=== PATIENT | male | born 1965 | race Caucasian/White ===

== ENCOUNTER 2017-09-04 19:42 | Inpatient (IN) | payer SELFPAY ==
[~2017-09-04] VITALS: Ht 174 cm; Wt 113.6 kg
[~2017-09-04 19:42] MED LIST: DEPA500T3 PO; HYDR50TA94 PO; LEXA20TA PO; QUET1TAB66 PO
[2017-09-04 19:50] VITALS: BP 160/98; PULSE 132; RESP 26; TEMP 102.4; O2SAT 91
[2017-09-04] MEDS ORDERED: SODIUM CHLOR 0.9% 1000 ML INJ 1,000 ML IV ONE ×3 (19:53)
[2017-09-04] MEDS ORDERED: SODIUM CHLOR 0.9% 1000 ML INJ 600 ML IV ONE (19:53)
[2017-09-04 19:58] VITALS: O2SAT 94
[2017-09-04] MEDS ORDERED: ONDANSETRON HCL 4 MG/2 ML VIAL IV PUSH ONE (20:00)
[2017-09-04] MEDS ORDERED: ACETAMINOPHEN 650 MG SUPP RECTAL ONE (20:00)
[2017-09-04] MEDS ORDERED: HYDROmorphone HCL PF 1 MG/ML VIAL IV PUSH ONE (20:00)
[2017-09-04] MEDS ORDERED: methylPREDNISolone SOD SUCC 125 MG/2 ML VIAL IV PUSH ONE (20:15)
--- NOTE | 2017-09-04 20:23 | PD ---
HPI Chief Complaint: Abdominal Pain Time Seen by Provider: 19:59 Travel History International Travel<30 days: No Contact w/Intl Traveler<30days: No Traveled to known affect area: No History of Present Illness HPI 51 YO M presents to the ED via EMS for evaluation of 6 month history of intermittent, 10/10, left upper quadrant abdominal pain. Worsened over the last 15 hours. No exacerbating symptoms reported. Relieved by sitting up and applying pressure to the area of pain. Patient endorses accompanying fever and chills. He denies diminished appetite, nausea, vomiting, changes in bowel habits, melena, hematochezia. He is a current smoker with a chronic, nonproductive cough. No worse today. He denies palpitations, diaphoresis, shortness of breath. He endorses chronic alcohol use, drank 7 beers last night before onset of the pain. He also complains that he has had several episodes of urinary incontinence which he associates with worsening of the pain. He denies dysuria or hematuria. He does not have a primary care provider. He states that he hasn't seen a doctor in "eons." [facility] Past Medical History Medical History: Denies Significant Hx Asthma: Yes Autoimmune Disease: No Blood Disorders: No Bipolar Disorder: Yes Anxiety: Yes (not currently ) Depression: Yes (not currently ) Cancer: No Cardiovascular Problems: Yes Chemotherapy: No Chest Pain: Yes COPD: Yes (denies - states never told and never sent to specialist for it) Diabetes: No Diminished Hearing: No Endocrine: No Genitourinary: No Immune Disorder: No Musculoskeletal: Yes (chronic back pain does not take meds for) Neurologic: No Psychiatric: Yes Reproductive: No Respiratory: Yes Myocardial Infarction: No Radiation Therapy: No Renal Failure: No Sleep Apnea: Yes Thyroid Disease: No Past Surgical History Surgical History: No Previous Surgery AICD: No Oral Surgery: Yes (tonsillectomy) Pacemaker: No Other Surgery: Yes Family History Family Hypercholesterolemia: Yes Social History Alcohol Use: Yes (2-3X WEEKLY) Tobacco Use: Yes (1 PPD) Substance Use: No Allergies-Medications (Allergen,Severity, Reaction): Coded Allergies: Sulfa (Sulfonamide Antibiotics) (Unverified Allergy, Severe, SOB, 09/04/17 ) ciprofloxacin (Verified Allergy, Unknown, 09/04/17) Reported Meds & Prescriptions Reported Meds & Active Scripts Active Review of Systems Except as stated in HPI: all other systems reviewed are Neg Physical Exam Narrative GENERAL: [place] nourished, well-developed hypoxic, tachypneic white male in mild distress. SKIN: Focused skin assessment warm/dry. HEAD: Normocephalic. EYES: No scleral icterus. No injection or drainage. NECK: Supple, trachea midline. No JVD or lymphadenopathy. CARDIOVASCULAR: Regular rate and rhythm without murmurs, gallops, or rubs. RESPIRATORY: Breath sounds coarse bilaterally. Positive accessory muscle use. Patient speaking in short sentences. Tender to palpation in the left lower rib cage. GASTROINTESTINAL: Abdomen soft, protuberant, nondistended. Tender to palpation in the left lateral upper quadrant. MUSCULOSKELETAL: No cyanosis, or edema. Moves easily from sitting to standing position. BACK: Nontender without obvious deformity. No CVA tenderness. Data Data Last Documented VS Vital Signs Date Time Temp Pulse Resp B/P (MAP) Pulse Ox O2 Delivery O2 Flow Rate FiO2 09/04/17 21:42 99.6 129 22 165/87 (113) 92 Nasal Cannula 2.00 Orders Orders Electrocardiogram (09/04/17 19:53) Complete Blood Count With Diff (09/04/17 19:53) Comprehensive Metabolic Panel (09/04/17 19:53) Prothrombin Time / Inr (Pt) (09/04/17 19:53) Act Partial Throm Time (Ptt) (09/04/17 19:53) Lactic Acid Sepsis Protocol (09/04/17 19:53) Magnesium (Mg) (09/04/17 19:53) Lipase (09/04/17 19:53) Ckmb (Isoenzyme) Profile (09/04/17 19:53) Troponin I (09/04/17 19:53) Urinalysis - C+S If Indicated (09/04/17 19:53) Blood Culture (09/04/17 19:53) Chest, Single Ap (09/04/17 19:53) Blood Glucose (09/04/17 19:53) Ecg Monitoring (09/04/17 19:53) Iv Access Insert/Monitor (09/04/17 19:53) Oximetry (09/04/17 19:53) Acetaminophen Supp (Tylenol Supp) (09/04/17 20:00) Hydromorphone Pf Inj (Dilaudid Pf Inj) (09/04/17 20:00) Ondansetron Inj (Zofran Inj) (09/04/17 20:00) Ct Abd/Pel W Iv Contrast(Rout) (09/04/17 19:53) Sodium Chlor 0.9% 1000 Ml Inj (Ns 1000 M (09/04/17 19:53) Sodium Chlor 0.9% 1000 Ml Inj (Ns 1000 M (09/04/17 19:53) Sodium Chlor 0.9% 1000 Ml Inj (Ns 1000 M (09/04/17 19:53) Sodium Chlor 0.9% 1000 Ml Inj (Ns 1000 M (09/04/17 19:53) Methylprednisolone So Succ Inj (Solumedr (09/04/17 20:15) Albuterol-Ipratropium Neb (Duoneb Neb) (09/04/17 20:15) Ceftriaxone Inj (Rocephin Inj) (09/04/17 20:34) Azithromycin Inj (Zithromax Inj) (09/04/17 20:34) Iohexol 350 Inj (Omnipaque 350 Inj) (09/04/17 21:24) Magnesium Sulfate 1 Gm Premix (Magnesium (09/04/17 22:00) Albuterol Neb (Albuterol Neb) (09/04/17 22:00) Arterial Blood Gas (Abg) (09/04/17 ) Labs Laboratory Tests Test 09/04/17 20:00 White Blood Count 13.8 TH/MM3 Red Blood Count 5.18 MIL/MM3 Hemoglobin 16.2 GM/DL Hematocrit 47.2 % Mean Corpuscular Volume 91.1 FL Mean Corpuscular Hemoglobin 31.3 PG Mean Corpuscular Hemoglobin Concent 34.4 % Red Cell Distribution Width 12.3 % Platelet Count 242 TH/MM3 Mean Platelet Volume 6.9 FL Neutrophils (%) (Auto) 82.6 % Lymphocytes (%) (Auto) 9.5 % Monocytes (%) (Auto) 7.5 % Eosinophils (%) (Auto) 0.1 % Basophils (%) (Auto) 0.3 % Neutrophils # (Auto) 11.4 TH/MM3 Lymphocytes # (Auto) 1.3 TH/MM3 Monocytes # (Auto) 1.0 TH/MM3 Eosinophils # (Auto) 0.0 TH/MM3 Basophils # (Auto) 0.0 TH/MM3 CBC Comment DIFF FINAL Differential Comment Prothrombin Time 10.3 SEC Prothromb Time International Ratio 0.9 RATIO Activated Partial Thromboplast Time 29.3 SEC Blood Urea Nitrogen 12 MG/DL Creatinine 0.74 MG/DL Random Glucose 106 MG/DL Total Protein 7.9 GM/DL Albumin 3.3 GM/DL Calcium Level 8.7 MG/DL Magnesium Level 1.9 MG/DL Alkaline Phosphatase 106 U/L Aspartate Amino Transf (AST/SGOT) 47 U/L Alanine Aminotransferase (ALT/SGPT) 74 U/L Total Bilirubin 1.0 MG/DL Sodium Level 136 MEQ/L Potassium Level 4.0 MEQ/L Chloride Level 103 MEQ/L Carbon Dioxide Level 26.1 MEQ/L Anion Gap 7 MEQ/L Estimat Glomerular Filtration Rate 111 ML/MIN Lactic Acid Level 1.0 mmol/L Total Creatine Kinase 87 U/L Troponin I LESS THAN 0.02 NG/ML Lipase 122 U/L MDM Medical Decision Making Medical Screen Exam Complete: Yes Emergency Medical Condition: Yes Differential Diagnosis Pneumonia versus pancreatitis versus UTI versus ACS versus PE versus other Narrative Course 51 YO M presents to the ED via EMS for evaluation of 6 month history of intermittent, 10/10, left upper quadrant abdominal pain. Worsened over the last 15 hours. He denies diminished appetite, nausea, vomiting, changes in bowel habits, melena, hematochezia. He is a current smoker with a chronic, nonproductive cough. No worse today. He denies palpitations, diaphoresis, shortness of breath. He endorses chronic alcohol use. He has had several episodes of urinary incontinence which he associates with worsening of the pain. He denies dysuria or hematuria. No PCP. On arrival temp 102.4. Pulse 132, respiratory rate 26, BP 160/98, O2 91% on room air. On exam the patient has coarse and eye laterally. He is tender to palpation in the left lateral upper quadrant and left lower rib cage. Exam is otherwise unremarkable. 3L O2 nasal cannula applied. Patient was administered 4 L normal saline, 1 mg Dilaudid, 4 mg Zofran IV and 650 mg Tylenol by mouth. EKG rate 127, sinus tachycardia. Normal intervals. Normal axis. No ST changes. Reviewed by Dr. Jaquez. CXR: Left lower lobe pneumonia and small pleural effusion. CBC: WBC 13.8. INR 0.9. CMP: AST 47 Cardiac enzymes negative 1. UA pending. CT of abdomen and pelvis: Nonobstructing 7 mm stone extrarenal pelvis. No hydronephrosis. Small left pleural effusion. On recheck the patient is very diaphoretic. Temp 99.6. Pulse 129. Respiratory rate 26 and O2 sats 92-94% on 3 L nasal cannula. Breath sounds continued to be tight sounding. Dr. Jaquez evaluated the patient and recommended 2 mg magnesium IV and 2 additional DuoNeb's. CTA was considered, however the patient already had IV dye for the abdominal CT. We'll give a dose of Lovenox tonight and have the CTA in 12 hours. I discussed the results of workup with the patient and the need for admission. He is agreeable. I spoke with Dr. Monroe who agrees to accept the patient to the medicine service. Please see medicine notes for disposition. Sepsis Criteria SIRS Criteria (2 or more): Temp > 100.9 or < 96.8, Heart rate over 90, WBC > 55639, < 4000 or > 10% bands Sepsis Criteria (SIRS+source): Infect source susp/known Criteria Outcome: Meets sepsis criteria Samantha Bojorquez Sep 04, 2017 20:23
--- NOTE | 2017-09-04 20:28 | RADRPT ---
EXAM DATE/TIME: 09/04/2017 19:56 [facility] COMPARISON: CHEST SINGLE AP, January 03, 2016, 8:12. INDICATIONS : Fever, Shortness of breath since today. MEDICAL HISTORY : None. SURGICAL HISTORY : None. ENCOUNTER: Initial ACUITY: 1 day PAIN SCORE: 10/10 LOCATION: Left lower chest FINDINGS: There is a dense opacity at the left base which obscures the left hemidiaphragm and portions of the l eft heart border. Possible meniscal interface laterally. The right lung is clear but the heart is n ormal in size. Osseous structures are grossly intact. CONCLUSION: Left lower lobe infiltrate and pleural effusion. Fred Clinton MD on September 04, 2017 at 20:26 Board Certified Radiologist. This report was verified electronically.
[2017-09-04 20:32] LABS: AUTOMATED NEUTROPHIL # 11.4 TH/MM3 (1.8-7.7); BASOPHIL % 0.3 % (0.0-2.0); EOSINOPHIL % 0.1 % (0.0-4.0); HEMATOCRIT 47.2 % (39.0-51.0); HEMOGLOBIN 16.2 GM/DL (13.0-17.0); LYMPH % 9.5 % (9.0-44.0); LYMPHOCYTE # 1.3 TH/MM3 (1.0-4.8); MEAN CELL VOLUME 91.1 FL (80.0-100.0); MEAN CORPUSCULAR HEMOGLOBIN 31.3 PG (27.0-34.0); MEAN CORPUSCULAR HGB CONC 34.4 % (32.0-36.0); MEAN PLATELET VOLUME 6.9 FL (7.0-11.0); MONO % 7.5 % (0.0-8.0); NEUT % 82.6 % (16.0-70.0); PLATELET COUNT 242 TH/MM3 (150-450); RED BLOOD COUNT 5.18 MIL/MM3 (4.50-5.90); RED CELL DISTRIBUTION WIDTH 12.3 % (11.6-17.2); WHITE BLOOD COUNT 13.8 TH/MM3 (4.0-11.0)
[2017-09-04] MEDS ORDERED: AZITHROMYCIN INJ 500 MG in SODIUM CHLOR 0.9% 250 ML INJ 250 ML IV STA (20:34)
[2017-09-04] MEDS ORDERED: cefTRIAXone INJ 2,000 MG in SODIUM CHLORIDE 0.9% INJ 100 ML IV STA (20:34)
[2017-09-04] MEDS: RESP: ALBUTEROL 2.5 MG/IPRATROPIUM 0.5 MG NEB (SCH) INH (20:37)
[2017-09-04 20:42] LABS: INTERNATIONAL NORMALIZED RATIO 0.9 RATIO; PROTHROMBIN TIME - PATIENT 10.3 SEC (9.8-11.6)
[2017-09-04 20:53] LABS: ALBUMIN 3.3 GM/DL (3.4-5.0); AST (GOT) 47 U/L (15-37); BICARBONATE 26.1 MEQ/L (21.0-32.0); BLOOD UREA NITROGEN 12 MG/DL (7-18); CALCIUM 8.7 MG/DL (8.5-10.1); CHLORIDE 103 MEQ/L (98-107); CREATININE 0.74 MG/DL (0.60-1.30); GLOMERULAR FILTRATION RATE 111 ML/MIN (>89); GLUCOSE,RANDOM 106 MG/DL (74-106); LIPASE 122 U/L (73-393); MAGNESIUM 1.9 MG/DL (1.5-2.5); SODIUM (NA) 136 MEQ/L (136-145)
[2017-09-04 20:58] LABS: ALKALINE PHOSPHATASE 106 U/L (45-117); ALT (GPT) 74 U/L (12-78); TOTAL PROTEIN 7.9 GM/DL (6.4-8.2); TROPONIN I LESS THAN 0.02 NG/ML (0.02-0.05)
[2017-09-04 21:15] VITALS: O2SAT 94
[2017-09-04] MEDS ORDERED: IOHEXOL 350 MG/ML 10 ML VIAL (for RAD DIAG) IVCONTRAST ONE (21:24)
--- NOTE | 2017-09-04 21:35 | RADRPT ---
EXAM DATE/TIME: 09/04/2017 21:22 [facility] COMPARISON: No previous studies available for comparison. INDICATIONS : Left upper quadrant pain. IV CONTRAST: 95 cc Omnipaque 350 (iohexol) IV ORAL CONTRAST: No oral contrast ingested. RADIATION DOSE: 19.49 CTDIvol (mGy) MEDICAL HISTORY : Cardiovascular disease. SURGICAL HISTORY : None. ENCOUNTER: Initial ACUITY: 1 day PAIN SCALE: 9/10 LOCATION: Left upper quadrant TECHNIQUE: Volumetric scanning of the abdomen and pelvis was performed. Using automated exposure control and ad justment of the mA and/or kV according to patient size, radiation dose was kept as low as reasonably achievable to obtain optimal diagnostic quality images. DICOM format image data is available electro nically for review and comparison. FINDINGS: LOWER LUNGS: Left pleural effusion measures 2.8 cm in thickness. There is some compressive atelectasis of the adj acent left lower lung. LIVER: Homogeneous density without lesion. There is no dilation of the biliary tree. No calcified gallston es. SPLEEN: Normal size without lesion. PANCREAS: Within normal limits. KIDNEYS: No evidence of hydronephrosis on either side. There is a solitary 7 mm calcified stone in the extrar enal pelvis on the left side. Both ureters are normal in dimension without evidence of calcified sto ne. ADRENAL GLANDS: Within normal limits. VASCULAR: There is no aortic aneurysm. BOWEL/MESENTERY: No dilated loops of small or large bowel. ABDOMINAL WALL: Within normal limits. RETROPERITONEUM: There is no lymphadenopathy. BLADDER: No wall thickening or mass. REPRODUCTIVE: Within normal limits. INGUINAL: There is no lymphadenopathy or hernia. MUSCULOSKELETAL: Within normal limits for patient age. CONCLUSION: 1. Nonobstructing 7 mm stone in the extra renal pelvis on the left side. No evidence of hydronephros is. 2. Small left pleural effusion. Fred Clinton MD on September 04, 2017 at 21:31 Board Certified Radiologist. This report was verified electronically.
[2017-09-04 21:42] VITALS: BP 165/87; PULSE 129; RESP 22; TEMP 99.6; O2SAT 92
--- NOTE | 2017-09-04 21:58 | PD ---
Physical Exam Date Seen by Provider: Sep 04, 2017 Data Data Last Documented VS Vital Signs Date Time Temp Pulse Resp B/P (MAP) Pulse Ox O2 Delivery O2 Flow Rate FiO2 09/04/17 21:42 99.6 129 22 165/87 (113) 92 Nasal Cannula 2.00 Orders Orders Electrocardiogram (09/04/17 19:53) Complete Blood Count With Diff (09/04/17 19:53) Comprehensive Metabolic Panel (09/04/17 19:53) Prothrombin Time / Inr (Pt) (09/04/17 19:53) Act Partial Throm Time (Ptt) (09/04/17 19:53) Lactic Acid Sepsis Protocol (09/04/17 19:53) Magnesium (Mg) (09/04/17 19:53) Lipase (09/04/17 19:53) Ckmb (Isoenzyme) Profile (09/04/17 19:53) Troponin I (09/04/17 19:53) Urinalysis - C+S If Indicated (09/04/17 19:53) Blood Culture (09/04/17 19:53) Chest, Single Ap (09/04/17 19:53) Blood Glucose (09/04/17 19:53) Ecg Monitoring (09/04/17 19:53) Iv Access Insert/Monitor (09/04/17 19:53) Oximetry (09/04/17 19:53) Acetaminophen Supp (Tylenol Supp) (09/04/17 20:00) Hydromorphone Pf Inj (Dilaudid Pf Inj) (09/04/17 20:00) Ondansetron Inj (Zofran Inj) (09/04/17 20:00) Ct Abd/Pel W Iv Contrast(Rout) (09/04/17 19:53) Sodium Chlor 0.9% 1000 Ml Inj (Ns 1000 M (09/04/17 19:53) Sodium Chlor 0.9% 1000 Ml Inj (Ns 1000 M (09/04/17 19:53) Sodium Chlor 0.9% 1000 Ml Inj (Ns 1000 M (09/04/17 19:53) Sodium Chlor 0.9% 1000 Ml Inj (Ns 1000 M (09/04/17 19:53) Methylprednisolone So Succ Inj (Solumedr (09/04/17 20:15) Albuterol-Ipratropium Neb (Duoneb Neb) (09/04/17 20:15) Ceftriaxone Inj (Rocephin Inj) (09/04/17 20:34) Azithromycin Inj (Zithromax Inj) (09/04/17 20:34) Iohexol 350 Inj (Omnipaque 350 Inj) (09/04/17 21:24) Ct Pulmonary Angiogram (09/04/17 21:50) Magnesium Sulfate 1 Gm Premix (Magnesium (09/04/17 22:00) Albuterol Neb (Albuterol Neb) (09/04/17 22:00) Labs Laboratory Tests Test 09/04/17 20:00 White Blood Count 13.8 TH/MM3 Red Blood Count 5.18 MIL/MM3 Hemoglobin 16.2 GM/DL Hematocrit 47.2 % Mean Corpuscular Volume 91.1 FL Mean Corpuscular Hemoglobin 31.3 PG Mean Corpuscular Hemoglobin Concent 34.4 % Red Cell Distribution Width 12.3 % Platelet Count 242 TH/MM3 Mean Platelet Volume 6.9 FL Neutrophils (%) (Auto) 82.6 % Lymphocytes (%) (Auto) 9.5 % Monocytes (%) (Auto) 7.5 % Eosinophils (%) (Auto) 0.1 % Basophils (%) (Auto) 0.3 % Neutrophils # (Auto) 11.4 TH/MM3 Lymphocytes # (Auto) 1.3 TH/MM3 Monocytes # (Auto) 1.0 TH/MM3 Eosinophils # (Auto) 0.0 TH/MM3 Basophils # (Auto) 0.0 TH/MM3 CBC Comment DIFF FINAL Differential Comment Prothrombin Time 10.3 SEC Prothromb Time International Ratio 0.9 RATIO Activated Partial Thromboplast Time 29.3 SEC Blood Urea Nitrogen 12 MG/DL Creatinine 0.74 MG/DL Random Glucose 106 MG/DL Total Protein 7.9 GM/DL Albumin 3.3 GM/DL Calcium Level 8.7 MG/DL Magnesium Level 1.9 MG/DL Alkaline Phosphatase 106 U/L Aspartate Amino Transf (AST/SGOT) 47 U/L Alanine Aminotransferase (ALT/SGPT) 74 U/L Total Bilirubin 1.0 MG/DL Sodium Level 136 MEQ/L Potassium Level 4.0 MEQ/L Chloride Level 103 MEQ/L Carbon Dioxide Level 26.1 MEQ/L Anion Gap 7 MEQ/L Estimat Glomerular Filtration Rate 111 ML/MIN Lactic Acid Level 1.0 mmol/L Total Creatine Kinase 87 U/L Troponin I LESS THAN 0.02 NG/ML Lipase 122 U/L [facility] Medical Record Reviewed: Yes Supervised Visit with KAYCEE: Yes Interpretation(s) Vital Signs Date Time Temp Pulse Resp B/P (MAP) Pulse Ox O2 Delivery O2 Flow Rate FiO2 09/04/17 21:42 99.6 129 22 165/87 (113) 92 Nasal Cannula 2.00 09/04/17 21:15 94 Nasal Cannula 2.00 09/04/17 19:58 94 Nasal Cannula 2.00 09/04/17 19:50 102.4 132 26 160/98 (118) 91 Differential Diagnosis PE, pneumonia, ACS, arrhythmia, sepsis Narrative Course I, Dr. Jaquez, have reviewed the advance practice practitioner's documentation and am in agreement, met with the patient face to face, made the diagnosis, and the medical decision making was done by me. *My assessment and Findings: Sepsis: wbc 13.8, lactate 1.0, patient with a temperature of 102.4. Presentation emergency room, patient tachycardic with heart rate in the 130s and respiratory rate of 26 Patient currently pending CTA to rule out PE. Patient does have a left lower lobe pneumonia, patient has been pancultured, he has been given azithromycin as well as Rocephin for treatment of pneumonia. Patient does have history of COPD , he is a smoker, his pulse ox is 94% on 3L NC. Patient continues to have wheezing on exam, magnesium as well as more neb treatments ordered. patient will require admission to the hospital at this time Critical Care Narrative Aggregate critical care time was 30 minutes. Time to perform other separately billable procedures was not included in the critical care time. My time did not include minutes spent treating any other patients simultaneously or on activities that did not directly contribute to the patient's treatment. The services I provided to this patient were to treat and/or prevent clinically significant deterioration that could result in: , decompensation, deterioration I provided critical care services requiring my management, as noted below: Chart data review, documentation time, medication orders and management, vital sign assessments/reviewing monitor data, ordering and reviewing lab tests, ordering and interpreting/reviewing x-rays and diagnostic studies, care of the patient and discussion of the patient with the admitting physicians. Sepsis Criteria SIRS Criteria (2 or more): Temp > 100.9 or < 96.8, Heart rate over 90, RR > 20 or PaCO2 < 32, WBC > 53082, < 4000 or > 10% bands Criteria Outcome: Meets sepsis criteria Diagnosis Primary Impression: Sepsis Additional Impressions: Pneumonia COPD exacerbation Hypoxia Admitting Information Admitting Physician Requests: Admit Tejal Jaquez DO Sep 04, 2017 21:58
[2017-09-04] MEDS ORDERED: SENNOSIDES 8.6 MG TAB PO PRN (22:00)
[2017-09-04] MEDS ORDERED: LACTULOSE SYRUP 20 GM/30 ML CUP PO PRN (22:00)
[2017-09-04] MEDS ORDERED: BISACODYL 10 MG SUPP RECTAL PRN (22:00)
[2017-09-04] MEDS ORDERED: MAGNESIUM HYDROXIDE SUSP 30 ML CUP PO PRN (22:00)
[2017-09-04] MEDS ORDERED: NALOXONE HCL 0.4 MG/ML AMP IV PUSH PRN (22:00)
[2017-09-04] MEDS ORDERED: HEPARIN SODIUM - SQ 10,000 UNITS/ML VIAL SQ SCH (22:00)
[2017-09-04] MEDS ORDERED: ONDANSETRON HCL 4 MG/2 ML VIAL IVP PRN (22:00)
[2017-09-04] MEDS: MAGNESIUM SULFATE 1 GM PREMIX 100 ML IV SCH (22:14)
[2017-09-04] MEDS ORDERED: ENOXAPARIN SODIUM 120 MG/0.8 ML SYRINGE SQ ONE (22:15)
[2017-09-04] MEDS: RESP: ALBUTEROL 2.5 MG/3 ML NEB (SCH) INH (22:40)
--- NOTE | 2017-09-04 23:13 | HHI.HP ---
[facility] Service [facility] Primary Care Physician No Primary Care Physician Admission Diagnosis community acquired pneumonia, sepsis Diagnoses: Travel History International Travel<30 Days: No Contact w/Intl Traveler <30 Da: No Traveled to Known Affected Are: No History of Present Illness 51-year-old male with no significant past medical history presents with one-day history of acute onset pleuritic left lower chest pain, unmeasured fevers, chills, worsening shortness of breath, sweats, and fatigue. He denies any nausea or vomiting, continues to have good appetite. Denies any constipation or diarrhea. Denies any sick contacts. He denies any recent travel or denies any pain in his extremities. Denies any edema. Review of Systems Except as stated in HPI: all other systems reviewed are Neg Past Family Social History Past Medical History Patient denies any past medical history Past Surgical History Patient denies any past surgical history Reported Medications Patient denies taking any medications Allergies: Coded Allergies: Sulfa (Sulfonamide Antibiotics) (Unverified Allergy, Severe, SOB, 09/04/17 ) ciprofloxacin (Verified Allergy, Unknown, 09/04/17) Family History Mother secondary to heart problems. Father secondary to palpitations from Parkinson's. Social History Patient has smoked 2 packs per day since his teenage years. Patient drinks 3 drinks per day. Denies any withdrawal issues. Occasional marijuana use. Physical Exam Vital Signs Vital Signs Date Time Temp Pulse Resp B/P (MAP) Pulse Ox O2 Delivery O2 Flow Rate FiO2 09/04/17 21:42 99.6 129 22 165/87 (113) 92 Nasal Cannula 2.00 09/04/17 21:15 94 Nasal Cannula 2.00 09/04/17 19:58 94 Nasal Cannula 2.00 09/04/17 19:50 102.4 132 26 160/98 (118) 91 Physical Exam GENERAL: This is a well-nourished, well-developed patient, appears moderately short of breath.. Patient is alert and oriented 3. SKIN: No rashes, ecchymoses or lesions. Cool and dry. HEAD: Atraumatic. Normocephalic. No temporal or scalp tenderness. EYES: Pupils equal round and reactive. Extraocular motions intact. No scleral icterus. No injection or drainage. ENT: Nose without bleeding, purulent drainage or septal hematoma. Throat without erythema, tonsillar hypertrophy or exudate. Uvula midline. Airway patent. NECK: Trachea midline. No JVD or lymphadenopathy. Supple, nontender, no meningeal signs. CARDIOVASCULAR: Regular rate and rhythm without murmurs, gallops, or rubs. RESPIRATORY: Clear to auscultation. Decreased breath sounds left lower lobe. No rhonchi. Poor air movement. GASTROINTESTINAL: Abdomen distended, however patient says this is baseline., non -tender. Obese. No hepato-splenomegaly, or palpable masses. No guarding. MUSCULOSKELETAL: Extremities without clubbing, cyanosis, or edema. No joint tenderness, effusion, or edema noted. No calf tenderness. Negative Homans sign bilaterally. NEUROLOGICAL: Awake and alert. Cranial nerves II through XII intact. Motor and sensory grossly within normal limits. Five out of 5 muscle strength in all muscle groups. Normal speech. Laboratory Laboratory Tests Test 09/04/17 20:00 09/04/17 22:30 White Blood Count 13.8 Red Blood Count 5.18 Hemoglobin 16.2 Hematocrit 47.2 Mean Corpuscular Volume 91.1 Mean Corpuscular Hemoglobin 31.3 Mean Corpuscular Hemoglobin Concent 34.4 Red Cell Distribution Width 12.3 Platelet Count 242 Mean Platelet Volume 6.9 Neutrophils (%) (Auto) 82.6 Lymphocytes (%) (Auto) 9.5 Monocytes (%) (Auto) 7.5 Eosinophils (%) (Auto) 0.1 Basophils (%) (Auto) 0.3 Neutrophils # (Auto) 11.4 Lymphocytes # (Auto) 1.3 Monocytes # (Auto) 1.0 Eosinophils # (Auto) 0.0 Basophils # (Auto) 0.0 CBC Comment DIFF FINAL Differential Comment Prothrombin Time 10.3 Prothromb Time International Ratio 0.9 Activated Partial Thromboplast Time 29.3 Blood Urea Nitrogen 12 Creatinine 0.74 Random Glucose 106 Total Protein 7.9 Albumin 3.3 Calcium Level 8.7 Magnesium Level 1.9 Alkaline Phosphatase 106 Aspartate Amino Transf (AST/SGOT) 47 Alanine Aminotransferase (ALT/SGPT) 74 Total Bilirubin 1.0 Sodium Level 136 Potassium Level 4.0 Chloride Level 103 Carbon Dioxide Level 26.1 Anion Gap 7 Estimat Glomerular Filtration Rate 111 Lactic Acid Level 1.0 Total Creatine Kinase 87 Troponin I LESS THAN 0.02 Lipase 122 Blood Gas Puncture Site RT RADIAL Blood Gas Patient Temperature 98.6 Blood Gas HCO3 25 Blood Gas Base Excess -0.2 Blood Gas Oxygen Saturation 91 Arterial Blood pH 7.33 Arterial Blood Partial Pressure CO2 48 Arterial Blood Partial Pressure O2 71 Arterial Blood Oxygen Content 20.4 Arterial Blood Carboxyhemoglobin 2.1 Arterial Blood Methemoglobin 0.6 Blood Gas Hemoglobin 15.9 Oxygen Delivery Device NASAL CANNULA Blood Gas Liter Flow 2 Date/Time Source Procedure Growth Status 09/04/17 20:06 Blood Peripheral Aerobic Blood Culture Pending Received 09/04/17 20:06 Blood Peripheral Anaerobic Blood Culture Pending Received Result Diagram: 09/04/17199909/04/171999 Imaging Last Impressions Chest X-Ray 09/04/171952 Signed Impressions: Service Date/Time: Monday, September 04, 2017 19:56 - CONCLUSION: Left lower lobe infiltrate and pleural effusion. Fred Clinton MD Abdomen/Pelvis CT 09/04/171952 Signed Impressions: Service Date/Time: Monday, September 04, 2017 21:22 - CONCLUSION: 1. Nonobstructing 7 mm stone in the extra renal pelvis on the left side. No evidence of hydronephrosis. 2. Small left pleural effusion. Fred Clinton MD [place] VTE Risk Assessment Caprini VTE Risk Assessment: Mod/High Risk (score >= 2) Caprini Risk Assessment Model Point Value = 1 Point Value = 2 Point Value = 3 Point Value = 5 Age 41-60 Minor surgery BMI > 25 kg/m2 Swollen legs Varicose veins or History of unexplained or recurrent spontaneous Oral contraceptives or hormone replacement Sepsis (< 1 month) Serious lung disease, including pneumonia (< 1 month) Abnormal pulmonary function Acute myocardial infarction Congestive heart failure (< 1 month) History of inflammatory bowel disease Medical patient at bed rest Age 61-74 Arthroscopic surgery Major open surgery (> 45 min) Laparoscopic surgery (> 45 min) Malignancy Confined to bed (> 72 hours) Immobilizing plaster cast Central venous access Age >= 75 History of VTE Family history of VTE Factor V Leiden Prothrombin [id number] Lupus anticoagulant Anticardiolipin antibodies Elevated serum homocysteine Heparin-induced thrombocytopenia Other congenital or acquired thrombophilia Stroke (< 1 month) Elective arthroplasty Hip, pelvis, or leg fracture Acute spinal cord injury (< 1 month) Prophylaxis Regimen Total Risk Factor Score Risk Level Prophylaxis Regimen 0-1 Low Early ambulation 2 Moderate Order ONE of the following: *Sequential Compression Device (SCD) *Heparin 5000 units SQ BID 3-4 Higher Order ONE of the following medications: *Heparin 5000 units SQ TID *Enoxaparin/Lovenox 40 mg SQ daily (WT < 150 kg, CrCl > 30 mL/min) *Enoxaparin/Lovenox 30 mg SQ daily (WT < 150 kg, CrCl > 10-29 mL/min) *Enoxaparin/Lovenox 30 mg SQ BID (WT < 150 kg, CrCl > 30 mL/min) AND/OR *Sequential Compression Device (SCD) 5 or more Highest Order ONE of the following medications: *Heparin 5000 units SQ TID (Preferred with Epidurals) *Enoxaparin/Lovenox 40 mg SQ daily (WT < 150 kg, CrCl > 30 mL/min) *Enoxaparin/Lovenox 30 mg SQ daily (WT < 150 kg, CrCl > 10-29 mL/min) *Enoxaparin/Lovenox 30 mg SQ BID (WT < 150 kg, CrCl > 30 mL/min) AND *Sequential Compression Device (SCD) Assessment and Plan Assessment and Plan //Sepsis -Fever 102.4, heart rate in the 130s, leukocytosis 13.8. Respiratory rate in the 20s on admission -Left lower lobe pneumonia, pleural effusion. -Lactate 1.0 //Left lower lobe pneumonia. //Hypoxic respiratory failure //Small left-sided pleural effusion //Respiratory acidosis. //Suspected COPD exacerbation. -CT abdomen personally reviewed with left lower lobe pleural effusion. -ABG reviewed with respiratory acidosis, suspect acute on chronic COPD. -Broad-spectrum antibiotics. Duo nebs. -Continue to monitor. //Possible pulmonary embolism -Suspicious due to left lower lobe pleural effusion, pleuritic chest pain. -CT pulmonary angiogram will need to wait as patient had contrast this evening. -Patient will be placed on Lovenox weight-based twice daily. We'll order d- dimer, ultrasound bilateral lower extremities to rule out DVT. //Chronic tobacco abuse. Cessation counseling provided. //Chronic alcohol use. -he drinks 3 drinks per day, denies any withdrawal issues. Continue to monitor. Avoid Ativan at this time due to respiratory acidosis. //Transaminitis. CT abdomen negative. AST elevated, possibly secondary to chronic alcohol use. Discussed Condition With Patient, ED physician. Physician Certification 2 Midnight Certification Type: Admission for Inpatient Services Order for Inpatient Services The services are ordered in accordance with Medicare regulations or non- Medicare payer requirements, as applicable. In the case of services not specified as inpatient-only, they are appropriately provided as inpatient services in accordance with the 2-midnight benchmark. Estimated LOS (days): 3 days is the estimated time the patient will need to remain in the hospital, assuming treatment plan goals are met and no additional complications. Post-Hospital Plan: Not yet determined Tomasz Monroe MD Sep 04, 2017 23:13
[2017-09-04] MEDS: RESP: ALBUTEROL 2.5 MG/IPRATROPIUM 0.5 MG NEB (SCH) NEB (23:15)
[2017-09-04] MEDS: methylPREDNISolone SOD SUCC 40 MG/1 ML VIAL IV PUSH SCH (23:15)
[2017-09-05] VITALS (9 sets, daily range): BP systolic 134–170; BP diastolic 56–96; PULSE 100–124; RESP 18–20; TEMP 97.1–99.4; O2SAT 92–95
--- NOTE | 2017-09-05 00:08 | RADRPT ---
EXAM DATE/TIME: 09/04/2017 23:24 [facility] COMPARISON: No previous studies available for comparison. INDICATIONS : Bilateral leg swelling. MEDICAL HISTORY : Syncope. Asthma. Sleep apnea. Chronic back pain. Bipolar disorder. SURGICAL HISTORY : Back surgery. ENCOUNTER: Initial ACUITY: 1 day PAIN SCORE: 0/10 LOCATION: Bilateral leg. TECHNIQUE: Venous ultrasound of the left and right leg was performed from the inguinal ligament to the proximal calf. Real-time, color Doppler and spectral tracing, compression and augmentation techniques were us ed. FINDINGS: RIGHT LEG: There is normal compressibility of the deep venous system from the inguinal region to the proximal ca lf. No echogenic clot is seen in the lumen of the common femoral, femoral, popliteal, and posterior tibial veins. There is a normal response of the venous system to proximal and distal augmentation an d respiration. LEFT LEG: There is normal compressibility of the deep venous system from the inguinal region to the proximal ca lf. No echogenic clot is seen in the lumen of the common femoral, femoral, popliteal, and posterior tibial veins. There is a normal response of the venous system to proximal and distal augmentation an d respiration. CONCLUSION: No venous thrombosis seen of either lower extremity. Chandler Matos MD on September 05, 2017 at 0:07 Board Certified Radiologist. This report was verified electronically.
[2017-09-05] MEDS: MAGNESIUM SULFATE 1 GM PREMIX 100 ML IV SCH (01:59)
[2017-09-05] MEDS: MORPHINE SULFATE 2 MG/ML INJ IV PUSH PRN (03:36)
[2017-09-05] MEDS: SODIUM CHLORIDE 0.9% FLUSH 10 ML FLUSH IV FLUSH PRN ×2 (03:36→06:41)
[2017-09-05] MEDS: RESP: ALBUTEROL 2.5 MG/IPRATROPIUM 0.5 MG NEB (SCH) NEB ×4 (04:47→21:31)
[2017-09-05] MEDS: methylPREDNISolone SOD SUCC 40 MG/1 ML VIAL IV PUSH SCH ×3 (06:40→22:09)
[2017-09-05] MEDS: AZITHROMYCIN 250 MG TAB PO SCH (08:28)
[2017-09-05] MEDS: SODIUM CHLORIDE 0.9% FLUSH 10 ML FLUSH IV FLUSH SCH ×2 (08:29→22:11)
[2017-09-05 11:11] LABS: BILIRUBIN, URINE NEG (NEG); BLOOD, URINE SMALL (NEG); GLUCOSE,URINE 1000 mg/dL (NEG); KETONE, URINE NEG (NEG); NITRITE,URINE NEG (NEG); URINE COLOR YELLOW (YELLW/STRAW); URINE LEUKOCYTE ESTERASE NEG (NEG)
--- NOTE | 2017-09-05 12:03 | HHI.PR ---
Subjective Remarks Follow up chest pain, pneumonia. Patient states that the sharp pain is much better, but still there. It is worse with movement, coughing, deep breaths. Denies dyspnea. Objective Vitals Vital Signs Date Time Temp Pulse Resp B/P (MAP) Pulse Ox O2 Delivery O2 Flow Rate FiO2 09/05/17 10:27 93 Nasal Cannula 2.00 09/05/17 08:00 97.1 100 18 159/85 (109) 93 09/05/17 07:40 101 09/05/17 07:40 Nasal Cannula 2.00 09/05/17 05:00 98.1 110 18 139/84 (102) 95 09/04/17 21:42 99.6 129 22 165/87 (113) 92 Nasal Cannula 2.00 09/04/17 21:15 94 Nasal Cannula 2.00 09/04/17 19:58 94 Nasal Cannula 2.00 09/04/17 19:50 102.4 132 26 160/98 (118) 91 I/O 09/04/17 09/04/17 09/04/17 09/05/17 09/05/17 09/05/17 07:00 15:00 23:00 07:00 15:00 23:00 Intake Total 3950 ml Balance 3950 ml Intake IV Total 3950 ml # Voids 2 Result Diagram: 09/04/17199909/04/171999 Imaging Last Impressions Chest X-Ray 09/04/171952 Signed Impressions: Service Date/Time: Monday, September 04, 2017 19:56 - CONCLUSION: Left lower lobe infiltrate and pleural effusion. Fred Clinton MD Abdomen/Pelvis CT 09/04/171952 Signed Impressions: Service Date/Time: Monday, September 04, 2017 21:22 - CONCLUSION: 1. Nonobstructing 7 mm stone in the extra renal pelvis on the left side. No evidence of hydronephrosis. 2. Small left pleural effusion. Fred Clinton MD Lower Extremity Ultrasound 09/04/17 0000 Signed Impressions: Service Date/Time: Monday, September 04, 2017 23:24 - CONCLUSION: No venous thrombosis seen of either lower extremity. Chandler Matos MD Objective Remarks General: No acute distress. Heart: Regular rate and rhythm. No murmur. Lungs: Diffuse expiratory wheeze. Decreased breath sounds in the left base. Breathing is nonlabored. Abdomen: Soft, nontender, nondistended. Extremities: No lower extremity edema. Psych: Alert and oriented. Procedures None Urinary Catheter: No Vascular Central Line Catheter: No A/P Assessment and Plan 1. Pneumonia, sepsis: Patient presented with fever, tachycardia, leukocytosis, tachypnea. Source is left lower lobe pneumonia. Continue antibiotics. 2. Dyspnea, pleuritic chest pain: Likely secondary to pneumonia. Pain is improving. D-dimer is elevated. Check VQ scan. The patient is on treatment dose Lovenox. Continue bronchodilators. 3. Tobacco abuse: Patient counseled to quit smoking. 4. EVT prophylaxis: Lovenox. Vinayak Baig MD Sep 05, 2017 12:03
[2017-09-05 12:14] LABS: AUTOMATED NEUTROPHIL # 16.3 TH/MM3 (1.8-7.7); BASOPHIL % 0.1 % (0.0-2.0); HEMATOCRIT 44.6 % (39.0-51.0); HEMOGLOBIN 15.4 GM/DL (13.0-17.0); LYMPHOCYTE # 0.7 TH/MM3 (1.0-4.8); MEAN CELL VOLUME 91.7 FL (80.0-100.0); MEAN CORPUSCULAR HEMOGLOBIN 31.8 PG (27.0-34.0); MEAN CORPUSCULAR HGB CONC 34.6 % (32.0-36.0); MEAN PLATELET VOLUME 7.3 FL (7.0-11.0); MONO % 3.1 % (0.0-8.0); MONOCYTE # 0.6 TH/MM3 (0-0.9); NEUT % 92.8 % (16.0-70.0); PLATELET COUNT 207 TH/MM3 (150-450); RED BLOOD COUNT 4.87 MIL/MM3 (4.50-5.90); RED CELL DISTRIBUTION WIDTH 12.1 % (11.6-17.2); WHITE BLOOD COUNT 17.6 TH/MM3 (4.0-11.0)
[2017-09-05] MEDS: ENOXAPARIN SODIUM 100 MG/ML SYRINGE SQ SCH ×2 (12:17→22:10)
[2017-09-05 13:16] LABS: ALBUMIN 2.9 GM/DL (3.4-5.0); AST (GOT) 34 U/L (15-37); BLOOD UREA NITROGEN 13 MG/DL (7-18); CALCIUM 8.9 MG/DL (8.5-10.1); CHLORIDE 103 MEQ/L (98-107); CREATININE 0.62 MG/DL (0.60-1.30); GLOMERULAR FILTRATION RATE 136 ML/MIN (>89); GLUCOSE,RANDOM 207 MG/DL (74-106); SODIUM (NA) 138 MEQ/L (136-145)
[2017-09-05 13:31] LABS: ALKALINE PHOSPHATASE 94 U/L (45-117); ALT (GPT) 60 U/L (12-78); TOTAL BILIRUBIN ADULT 0.5 MG/DL (0.2-1.0); TOTAL PROTEIN 7.3 GM/DL (6.4-8.2)
--- NOTE | 2017-09-05 16:14 | RADRPT ---
EXAM DATE/TIME: 09/05/2017 15:05 [facility] COMPARISON: CHEST SINGLE AP, September 04, 2017, 19:56. US LEG BILATERAL VENOUS DOPPLER, September 04, 2017, 23:24. INDICATIONS : Left chest pain with shortness of breath, fevers, sweats, chills and fatigue. DOSE: 8.6 mCi Tc99m MAA IV 1 mCi Tc99m DTPA aerosol MEDICAL HISTORY : Chronic obstructive pulmonary disease. SURGICAL HISTORY : Tonsillectomy. ENCOUNTER: Initial ACUITY: 1 day PAIN SCALE: 3/10 LOCATION: chest TECHNIQUE: Following five minutes of tidal breathing of DTPA aerosol, planar images of the lungs were performed in eight projections. The patient was then injected with MAA, and eight-view perfusion scan was perf ormed. FINDINGS: On the ventilation scan, there is a segmental area of absent ventilation involving the posterior left lower lung which is congruent with the opacity seen on chest x-ray.. There is also mild central dep osition of aerosol Carlos Enrique to obstructive airways disease.. The perfusion lung scan demonstrates a homogenous pattern of uptake in both lungs. No segmental or s ubsegmental defects are seen. There is intact perfusion to the area with the ventilation defect. CONCLUSION: 1. Low probability pulmonary embolism. 2. Absent ventilation in the left lower lung corresponding to the opacity seen on chest x-ray believe d to represent a combination of pleural effusion and consolidation. Fred Clinton MD on September 05, 2017 at 16:10 Board Certified Radiologist. This report was verified electronically.
--- NOTE | 2017-09-05 20:47 | EKG ---
Date Performed: 09/04/2017 Time Performed: 20:16:28 PTAGE: 51 years EKG: SINUS TACHYCARDIA ABNORMAL RHYTHM ECG PREVIOUS TRACING : 01/03/2016 11.43 DOCTOR: Keyla Guallpa Interpretating Date/Time 09/05/2017 20:42:23
[2017-09-05] MEDS: cefTRIAXone INJ 1,000 MG in SODIUM CHLORIDE 0.9% INJ 100 ML IV SCH (22:10)
[2017-09-06] VITALS (10 sets, daily range): BP systolic 150–165; BP diastolic 74–105; PULSE 97–109; RESP 20–24; TEMP 97.1–98.8; O2SAT 92–96
[2017-09-06] MEDS: RESP: ALBUTEROL 2.5 MG/IPRATROPIUM 0.5 MG NEB (SCH) NEB ×4 (04:20→21:15)
[2017-09-06] MEDS: methylPREDNISolone SOD SUCC 40 MG/1 ML VIAL IV PUSH SCH (05:29)
[2017-09-06] MEDS: AZITHROMYCIN 250 MG TAB PO SCH (08:40)
[2017-09-06] MEDS: SODIUM CHLORIDE 0.9% FLUSH 10 ML FLUSH IV FLUSH SCH ×2 (08:41→19:45)
[2017-09-06] MEDS ORDERED: INFLUENZA VIRUS VACCINE (QUADRIVALENT) 0.5 ML SYR IM ONE (10:00)
[2017-09-06 11:28] LABS: AUTOMATED NEUTROPHIL # 20.2 TH/MM3 (1.8-7.7); HEMATOCRIT 45.1 % (39.0-51.0); HEMOGLOBIN 15.1 GM/DL (13.0-17.0); LYMPH % 3.7 % (9.0-44.0); LYMPHOCYTE # 0.8 TH/MM3 (1.0-4.8); MEAN CELL VOLUME 91.4 FL (80.0-100.0); MEAN CORPUSCULAR HEMOGLOBIN 30.6 PG (27.0-34.0); MEAN CORPUSCULAR HGB CONC 33.4 % (32.0-36.0); MEAN PLATELET VOLUME 7.2 FL (7.0-11.0); MONO % 2.3 % (0.0-8.0); MONOCYTE # 0.5 TH/MM3 (0-0.9); PLATELET COUNT 273 TH/MM3 (150-450); RED BLOOD COUNT 4.93 MIL/MM3 (4.50-5.90); RED CELL DISTRIBUTION WIDTH 12.6 % (11.6-17.2); WHITE BLOOD COUNT 21.5 TH/MM3 (4.0-11.0)
--- NOTE | 2017-09-06 11:53 | HHI.PR ---
Subjective Remarks follow-up pneumonia. The patient states that the left-sided chest pain is much improved. Still with occasional sharp pain with deep breaths, but less than yesterday. Reports "very minimal" shortness of breath. Objective Vitals Vital Signs Date Time Temp Pulse Resp B/P (MAP) Pulse Ox O2 Delivery O2 Flow Rate FiO2 09/06/17 09:37 95 09/06/17 08:50 97.9 99 20 159/85 (109) 95 09/06/17 05:30 98.6 103 20 161/88 (112) 96 09/06/17 00:55 97.1 102 20 151/81 (104) 95 09/05/17 21:16 99.4 108 20 170/96 (120) 95 09/05/17 21:00 124 09/05/17 16:19 98.2 106 18 150/86 (107) 94 09/05/17 16:04 93 Nasal Cannula 2.00 09/05/17 12:07 98.6 104 20 134/56 (82) 92 I/O 09/05/17 09/05/17 09/05/17 09/06/17 09/06/17 09/06/17 07:00 15:00 23:00 07:00 15:00 23:00 # Voids 2 1 2 Result Diagram: 09/06/17 1056 09/05/17 1127 Imaging Last Impressions Lung Scan-V Nuclear Medicine 09/05/17 0000 Signed Impressions: Service Date/Time: Tuesday, September 05, 2017 15:05 - CONCLUSION: 1. Low probability pulmonary embolism. 2. Absent ventilation in the left lower lung corresponding to the opacity seen on chest x-ray believed to represent a combination of pleural effusion and consolidation. Fred Clinton MD Chest X-Ray 09/04/171952 Signed Impressions: Service Date/Time: Monday, September 04, 2017 19:56 - CONCLUSION: Left lower lobe infiltrate and pleural effusion. Fred Clinton MD Abdomen/Pelvis CT 09/04/171952 Signed Impressions: Service Date/Time: Monday, September 04, 2017 21:22 - CONCLUSION: 1. Nonobstructing 7 mm stone in the extra renal pelvis on the left side. No evidence of hydronephrosis. 2. Small left pleural effusion. Fred Clinton MD Lower Extremity Ultrasound 09/04/17 0000 Signed Impressions: Service Date/Time: Monday, September 04, 2017 23:24 - CONCLUSION: No venous thrombosis seen of either lower extremity. Chandler Matos MD Objective Remarks General: No acute distress. Heart: Regular rate and rhythm. No murmur. Lungs: Diffuse expiratory wheeze. Decreased breath sounds in the left base. Breathing is nonlabored. Abdomen: Soft, nontender, nondistended. Extremities: No lower extremity edema. Psych: Alert and oriented. Procedures None Urinary Catheter: No Vascular Central Line Catheter: No A/P Assessment and Plan 1. Pneumonia, sepsis: Patient presented with fever, tachycardia, leukocytosis, tachypnea. Source is left lower lobe pneumonia. Continue antibiotics. 2. Dyspnea, pleuritic chest pain: Likely secondary to pneumonia. Pain is improving. D-dimer is elevated. V/Q scan shows low probability of PE. Continue bronchodilators. 3. Tobacco abuse: Patient counseled to quit smoking. 4. EVT prophylaxis: Lovenox. Discharge Planning Possible discharge home tomorrow pending further clinical improvement. Vinayak Baig MD Sep 06, 2017 11:53
[2017-09-06] MEDS: MORPHINE SULFATE 2 MG/ML INJ IV PUSH PRN ×4 (13:13→20:01)
[2017-09-06] MEDS ORDERED: ENALAPRILAT 1.25 MG/ML VIAL IV PUSH PRN (14:15)
[2017-09-06] MEDS: LISINOPRIL 10 MG TAB PO SCH (14:58)
[2017-09-06] MEDS: SODIUM CHLORIDE 0.9% FLUSH 10 ML FLUSH IV FLUSH PRN (20:01)
[2017-09-06] MEDS: predniSONE 20 MG TAB PO SCH (22:23)
[2017-09-06] MEDS: cefTRIAXone INJ 1,000 MG in SODIUM CHLORIDE 0.9% INJ 100 ML IV SCH ×2 (22:24→22:38)
[2017-09-07] VITALS: BP_SYST 156; BP_SYST 165; BP_DIAS 103; BP_DIAS 105; PULSE 94; RESP 22; TEMP 98.2; O2SAT 94
[2017-09-07] MEDS: SODIUM CHLORIDE 0.9% FLUSH 10 ML FLUSH IV FLUSH PRN (01:01)
[2017-09-07 04:00] VITALS: BP 157/79; PULSE 97; RESP 22; TEMP 97.4; O2SAT 93
[2017-09-07] MEDS: RESP: ALBUTEROL 2.5 MG/IPRATROPIUM 0.5 MG NEB (SCH) NEB ×3 (04:16→15:24)
[2017-09-07] MEDS: AZITHROMYCIN 250 MG TAB PO SCH (07:55)
[2017-09-07] MEDS: LISINOPRIL 10 MG TAB PO SCH (07:55)
[2017-09-07] MEDS: predniSONE 20 MG TAB PO SCH (07:56)
[2017-09-07] MEDS: SODIUM CHLORIDE 0.9% FLUSH 10 ML FLUSH IV FLUSH SCH (07:57)
[2017-09-07 08:01] LABS: AUTOMATED NEUTROPHIL # 16.7 TH/MM3 (1.8-7.7); BASOPHIL # 0.1 TH/MM3 (0-0.2); BASOPHIL % 0.3 % (0.0-2.0); EOSINOPHIL % 0.1 % (0.0-4.0); HEMATOCRIT 43.2 % (39.0-51.0); LYMPH % 8.5 % (9.0-44.0); LYMPHOCYTE # 1.7 TH/MM3 (1.0-4.8); MEAN CELL VOLUME 91.5 FL (80.0-100.0); MEAN CORPUSCULAR HEMOGLOBIN 31.7 PG (27.0-34.0); MEAN CORPUSCULAR HGB CONC 34.7 % (32.0-36.0); MEAN PLATELET VOLUME 7.5 FL (7.0-11.0); MONO % 6.6 % (0.0-8.0); MONOCYTE # 1.3 TH/MM3 (0-0.9); NEUT % 84.5 % (16.0-70.0); PLATELET COUNT 273 TH/MM3 (150-450); RED BLOOD COUNT 4.72 MIL/MM3 (4.50-5.90); RED CELL DISTRIBUTION WIDTH 12.6 % (11.6-17.2); WHITE BLOOD COUNT 19.8 TH/MM3 (4.0-11.0)
[2017-09-07] MEDS: MORPHINE SULFATE 2 MG/ML INJ IV PUSH PRN (08:04)
[2017-09-07 08:28] LABS: BICARBONATE 28.4 MEQ/L (21.0-32.0); CALCIUM 8.6 MG/DL (8.5-10.1); CREATININE 0.62 MG/DL (0.60-1.30)
[2017-09-07 08:30] VITALS: BP 167/96; PULSE 91; RESP 20; TEMP 98.1; O2SAT 93
[2017-09-07] MEDS ORDERED: ENOXAPARIN SODIUM 100 MG/ML SYRINGE SQ SCH (09:00)
[2017-09-07 09:58] VITALS: O2SAT 97
[2017-09-07 10:18] VITALS: PULSE 90
[2017-09-07 12:00] VITALS: BP 158/92; PULSE 97; RESP 18; TEMP 98.1; O2SAT 92
[2017-09-07] MEDS ORDERED: PRED5PAK PO (13:33)
[2017-09-07] MEDS ORDERED: CEFU1TAB42 PO (13:33)
[2017-09-07] MEDS ORDERED: AZIT500T2 PO (13:33)
[2017-09-07] MEDS ORDERED: LISI10TA3 PO (13:33)
--- NOTE | 2017-09-07 13:33 | HHI.DCPOC ---
Discharge Care Plan Diagnosis: (1) Hypoxia (2) Sepsis (3) Pneumonia (4) COPD exacerbation Goals to Promote Your Health * To prevent worsening of your condition and complications * To maintain your health at the optimal level Directions to Meet Your Goals Take your medications as prescribed Follow your dietary instruction Follow activity as directed Keep your appointments as scheduled Take your immunizations and boosters as scheduled If your symptoms worsen call your PCP, if no PCP go to Urgent Care Center or Emergency Room Smoking is Dangerous to Your Health. Avoid second hand smoke Call the 24-hour hour crisis hotline for domestic abuse at Vinayak Baig MD Sep 07, 2017 13:33
--- NOTE | 2017-09-07 13:33 | HHI.DCPOC ---
Discharge Care Plan Diagnosis: (1) Hypoxia (2) Sepsis (3) Pneumonia (4) COPD exacerbation Goals to Promote Your Health * To prevent worsening of your condition and complications * To maintain your health at the optimal level Directions to Meet Your Goals Take your medications as prescribed Follow your dietary instruction Follow activity as directed Keep your appointments as scheduled Take your immunizations and boosters as scheduled If your symptoms worsen call your PCP, if no PCP go to Urgent Care Center or Emergency Room Smoking is Dangerous to Your Health. Avoid second hand smoke Call the 24-hour hour crisis hotline for domestic abuse at Vinayak Baig MD Sep 07, 2017 13:33
--- NOTE | 2017-09-07 13:33 | HHI.DCPOC ---
Discharge Care Plan Diagnosis: (1) Hypoxia (2) Sepsis (3) Pneumonia (4) COPD exacerbation Goals to Promote Your Health * To prevent worsening of your condition and complications * To maintain your health at the optimal level Directions to Meet Your Goals Take your medications as prescribed Follow your dietary instruction Follow activity as directed Keep your appointments as scheduled Take your immunizations and boosters as scheduled If your symptoms worsen call your PCP, if no PCP go to Urgent Care Center or Emergency Room Smoking is Dangerous to Your Health. Avoid second hand smoke Call the 24-hour hour crisis hotline for domestic abuse at Vinayak Baig MD Sep 07, 2017 13:33
--- NOTE | 2017-09-07 13:38 | HHI.DS ---
Discharge Summary Admission Date Sep 04, 2017 at 21:55 Discharge Date: Sep 07, 2017 Admitting Diagnosis community acquired pneumonia, sepsis (1) Hypoxia ICD Code: R09.02 - Hypoxemia Status: Acute (2) Sepsis ICD Code: A41.9 - Sepsis, unspecified organism Status: Acute (3) Pneumonia ICD Code: J18.9 - Pneumonia, unspecified organism Status: Acute (4) COPD exacerbation ICD Code: J44.1 - Chronic obstructive pulmonary disease with (acute) exacerbation Status: Acute Procedures None Brief History - From Admission 51-year-old male with no significant past medical history presents with one-day history of acute onset pleuritic left lower chest pain, unmeasured fevers, chills, worsening shortness of breath, sweats, and fatigue. He denies any nausea or vomiting, continues to have good appetite. Denies any constipation or diarrhea. Denies any sick contacts. He denies any recent travel or denies any pain in his extremities. Denies any edema. CBC/BMP: 09/07/17 0703 09/07/17 0703 Significant Findings Laboratory Tests Test 09/04/17 20:00 09/04/17 22:30 09/05/17 10:20 09/05/17 11:27 White Blood Count 13.8 TH/MM3 (4.0-11.0) 17.6 TH/MM3 (4.0-11.0) Mean Platelet Volume 6.9 FL (7.0-11.0) Neutrophils (%) (Auto) 82.6 % (16.0-70.0) 92.8 % (16.0-70.0) Neutrophils # (Auto) 11.4 TH/MM3 (1.8-7.7) 16.3 TH/MM3 (1.8-7.7) Monocytes # (Auto) 1.0 TH/MM3 (0-0.9) D-Dimer Quantitative (PE/DVT) 0.99 MG/L FEU (0.00-0.50) Albumin 3.3 GM/DL (3.4-5.0) 2.9 GM/DL (3.4-5.0) Aspartate Amino Transf (AST/SGOT) 47 U/L (15-37) Troponin I LESS THAN 0.02 NG/ML Arterial Blood pH 7.33 (7.380-7.420) Arterial Blood Partial Pressure CO2 48 mmHg (38-42) Arterial Blood Oxygen Content 20.4 Vol % (12.0-20.0) Urine Glucose (UA) 1000 mg/dL (NEG) Urine Occult Blood SMALL (NEG) Urine RBC 9 /hpf (0-3) Lymphocytes (%) (Auto) 4.0 % (9.0-44.0) Lymphocytes # (Auto) 0.7 TH/MM3 (1.0-4.8) Random Glucose 207 MG/DL (74-106) Test 09/06/17 10:56 09/07/17 07:03 White Blood Count 21.5 TH/MM3 (4.0-11.0) 19.8 TH/MM3 (4.0-11.0) Neutrophils (%) (Auto) 94.0 % (16.0-70.0) 84.5 % (16.0-70.0) Lymphocytes (%) (Auto) 3.7 % (9.0-44.0) 8.5 % (9.0-44.0) Neutrophils # (Auto) 20.2 TH/MM3 (1.8-7.7) 16.7 TH/MM3 (1.8-7.7) Lymphocytes # (Auto) 0.8 TH/MM3 (1.0-4.8) Thyroid Stimulating Hormone 3rd Gen 0.314 uIU/ML (0.358-3.740) Monocytes # (Auto) 1.3 TH/MM3 (0-0.9) Random Glucose 134 MG/DL (74-106) Imaging Last Impressions Lung Scan-VQ Nuclear Medicine 09/05/17 0000 Signed Impressions: Service Date/Time: Tuesday, September 05, 2017 15:05 - CONCLUSION: 1. Low probability pulmonary embolism. 2. Absent ventilation in the left lower lung corresponding to the opacity seen on chest x-ray believed to represent a combination of pleural effusion and consolidation. Fred Clinton MD Chest X-Ray 09/04/17 195 Signed Impressions: Service Date/Time: Monday, September 04, 2017 19:56 - CONCLUSION: Left lower lobe infiltrate and pleural effusion. Fred Clinton MD Abdomen/Pelvis CT 09/04/17 195 Signed Impressions: Service Date/Time: Monday, September 04, 2017 21:22 - CONCLUSION: 1. Nonobstructing 7 mm stone in the extra renal pelvis on the left side. No evidence of hydronephrosis. 2. Small left pleural effusion. Fred Clinton MD Lower Extremity Ultrasound 09/04/17 0000 Signed Impressions: Service Date/Time: Monday, September 04, 2017 23:24 - CONCLUSION: No venous thrombosis seen of either lower extremity. Chandler Matos MD PE at Discharge General: No acute distress. Heart: Regular rate and rhythm. No murmur. Lungs: Diffuse expiratory wheeze. Decreased breath sounds in the left base. Breathing is nonlabored. Abdomen: Soft, nontender, nondistended. Extremities: No lower extremity edema. Psych: Alert and oriented. Pt update on day of discharge The patient states that he feels much better. He does still have occasional sharp pains in the left side of his chest/rib cage with deep breaths. Shortness of breath has improved. He wants to go home. He become short of breath with activity, but states that this is his normal. He was ambulating with physical therapy upon my arrival. Oxygen saturation was 90% on room air with activity. Increased to 95% on room air with less than 30 seconds of rest. Hospital Course The patient was admitted for treatment of pneumonia. VQ scan was done to evaluate for possibility of pulmonary embolus. It showed low probability of PE. He was continued on antibiotics, oxygen, steroids, bronchodilators. He improved clinically throughout the hospitalization. He was started on lisinopril for blood pressure control and was strongly advised to establish with a primary care physician. He was counseled regarding smoking cessation and weight loss. Pt Condition on Discharge: Stable Discharge Disposition: Discharge Home Discharge Time: > 30 minutes Discharge Instructions DIET: Follow Instructions for: Heart Healthy Diet Activities you can perform: Regular-No Restrictions Follow up Referrals: PCP Follow-up - 1 Week New Medications: Azithromycin (Azithromycin) 500 Mg Tab 500 MG PO DAILY for Infection, #3 TAB 0 Refills Cefuroxime (Ceftin) 250 Mg Tab 250 MG PO BID for Infection, #6 TAB 0 Refills Prednisone (21) 5 mg tab Dose Pack (Prednisone (21) 5 mg tab Dose Pack) 5 Mg Dspk 5 MG PO DIRECTED for Inflammation, #1 DSPK 0 Refills Lisinopril (Lisinopril) 10 Mg Tab 10 MG PO DAILY for Blood Pressure Management, #30 TAB 0 Refills Vinayak Baig MD Sep 07, 2017 13:38
[2017-09-07] MEDS ORDERED: VENTAER INH (13:40)
== END 2017-09-07 15:53 | disposition home or self-care (01) | DRG 871 ==
LOC: NEPE 19:42 → NEDA 21:55 → N05B 09-05 00:27
PROVIDERS: ADMIT Family Medicine; ATTEND Family Medicine
DX: A41.9 Sepsis, unspecified organism (principal); J18.9 Pneumonia, unspecified organism; J96.91 Respiratory failure, unspecified with hypoxia; E87.2 Acidosis; J90 Pleural effusion, not elsewhere classified; J44.0 Chronic obstructive pulmonary disease with (acute) lower respiratory infection; J44.1 Chronic obstructive pulmonary disease with (acute) exacerbation; G89.29 Other chronic pain; G47.30 Sleep apnea, unspecified; F31.9 Bipolar disorder, unspecified; M54.9 Dorsalgia, unspecified; F17.210 Nicotine dependence, cigarettes, uncomplicated; R10.12 Left upper quadrant pain; Z23 Encounter for immunization
CPT/HCPCS: 36600; 71010; 74177; 78582; 80048; 80053; 81001; 82550; 82805; 83605; 83690; 83735; 83880; 84443; 84484; 85025; 85379; 85610; 85730; 87040; 90686; 93005; 93970; 94150; 94640; 94664; 96361; 96365; 96368; 96375; A9540; A9567; J0456; J0696; J1170; J1650; J2270; J2405; J2920; J2930; J3475; J7030; J7050; J7512; J7613; Q2038; Q9967

== ENCOUNTER 2018-01-17 19:07 | Emergency (ER) | payer OTHER ==
[~2018-01-17] VITALS: Ht 170.2 cm; Wt 118.6 kg
[~2018-01-17 19:07] MED LIST changes: +AZIT500T2 PO; +CEFU1TAB18 PO; -DEPA500T3 PO; -HYDR50TA94 PO; -LEXA20TA PO; +LISI10TA3 PO; +PRED5PAK PO; -QUET1TAB66 PO; +VENTAER INH
[2018-01-17 19:13] VITALS: BP 125/80; PULSE 110; RESP 20; TEMP 98.9; O2SAT 95
[2018-01-17] MEDS ORDERED: DICL75TA PO (19:36)
[2018-01-17] MEDS ORDERED: HYDR-3516 PO (19:36)
[2018-01-17] MEDS ORDERED: CLIN150C14 PO (19:36)
[2018-01-17] MEDS ORDERED: CEPH-460 PO (19:36)
[2018-01-17] MEDS ORDERED: ACETAMINOPHEN/HYDROcodone 325 MG/5 MG TAB PO ONE (19:45)
[2018-01-17] MEDS ORDERED: CLINDAMYCIN PHOS 600 MG/4 ML VIAL IM ONE (19:45)
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
== END 2018-01-17 20:44 | disposition home or self-care (01) ==
LOC: PHEFT 19:07
DX: S46.002A Unspecified injury of muscle(s) and tendon(s) of the rotator cuff of left shoulder, initial encounter (principal); L03.114 Cellulitis of left upper limb; S80.212A Abrasion, left knee, initial encounter; S40.811A Abrasion of right upper arm, initial encounter; V20.0XXA Motorcycle driver injured in collision with pedestrian or animal in nontraffic accident, initial encounter; Y92.410 Unspecified street and highway as the place of occurrence of the external cause; M19.90 Unspecified osteoarthritis, unspecified site; J45.909 Unspecified asthma, uncomplicated; F41.9 Anxiety disorder, unspecified; J44.9 Chronic obstructive pulmonary disease, unspecified; F17.210 Nicotine dependence, cigarettes, uncomplicated
CPT/HCPCS: 73030; 96372

== ENCOUNTER 2018-04-11 17:13 | Observation (INO) | payer SELFPAY ==
[~2018-04-11] VITALS: Ht 175.3 cm; Wt 124.9 kg
[2018-04-11] VITALS (7 sets, daily range): BP systolic 119–166; BP diastolic 58–102; PULSE 98–112; RESP 18–20; TEMP 97.7–98.6; O2SAT 93–96
[~2018-04-11 17:13] MED LIST changes: -AZIT500T2 PO; -CEFU1TAB18 PO; +CEPH-460 PO; +CLIN150C14 PO; +DICL75TA PO; +HYDR-3516 PO; +IOHEXOL 350 MG/ML 10 ML VIAL (for RAD DIAG) IVCONTRAST ONE; -PRED5PAK PO; -VENTAER INH
[2018-04-11] MEDS ORDERED: [UNRECOGNIZED DRUG - REMARK] PO (17:46)
[2018-04-11 18:13] LABS: BILIRUBIN, URINE NEG (NEG); BLOOD, URINE SMALL (NEG); GLUCOSE,URINE NEG (NEG); KETONE, URINE NEG (NEG); NITRITE,URINE NEG (NEG); PH, URINE 5.5 (5.0-8.5); URINE COLOR YELLOW (YELLW/STRAW); URINE LEUKOCYTE ESTERASE NEG (NEG)
[2018-04-11] MEDS ORDERED: SODIUM CHLORIDE 0.9% FLUSH 10 ML FLUSH IVF PRN (18:15)
[2018-04-11] MEDS ORDERED: NITROGLYCERIN 0.4 MG SL 25 TABS/BTL SL ONE (18:15)
[2018-04-11] MEDS ORDERED: ASPIRIN 81 MG CHEW TAB PO ONE (18:15)
[2018-04-11 18:20] LABS: BACTERIA, URINE RARE /hpf; RBC, URINE 0-3 /hpf (0-3); WBC, URINE 0-2 /hpf (0-5)
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
--- NOTE | 2018-04-11 18:47 | RADRPT ---
EXAM DATE: 04/11/2018 6:30 PM EDT AGE/SEX: 52 years / Male INDICATIONS: Left lower chest pain. CLINICAL DATA: This is the patient's initial encounter. Patient reports that signs and symptoms have been present for 1 week and indicates a pain score of 4/10. MEDICAL/SURGICAL HISTORY: Chronic obstructive pulmonary disease. None. COMPARISON: No prior [facility] exams available for comparison. FINDINGS: PA and lateral views of the chest demonstrate the lungs to be symmetrically aerated without evidence of mass, infiltrate or effusion. Minimal basilar atelectasis or scarring. The cardiomediastinal conto urs are unremarkable. Osseous structures are intact. CONCLUSION: Linear atelectasis or scarring at the bases. No effusion or pneumothorax. No focal consolidation. Electronically signed by: Andrea Wang MD 04/11/2018 6:46 PM EDT
[2018-04-11 18:50] LABS: AUTOMATED NEUTROPHIL # 6.6 TH/MM3 (1.8-7.7); BASOPHIL # 0.1 TH/MM3 (0-0.2); EOSINOPHIL # 0.1 TH/MM3 (0-0.4); EOSINOPHIL % 1.4 % (0.0-4.0); HEMATOCRIT 48.8 % (39.0-51.0); HEMOGLOBIN 16.1 GM/DL (13.0-17.0); LYMPH % 26.8 % (9.0-44.0); LYMPHOCYTE # 2.7 TH/MM3 (1.0-4.8); MEAN CELL VOLUME 88.6 FL (80.0-100.0); MEAN CORPUSCULAR HEMOGLOBIN 29.3 PG (27.0-34.0); MEAN CORPUSCULAR HGB CONC 33.1 % (32.0-36.0); MEAN PLATELET VOLUME 7.1 FL (7.0-11.0); MONO % 6.7 % (0.0-8.0); MONOCYTE # 0.7 TH/MM3 (0-0.9); NEUT % 64.1 % (16.0-70.0); PLATELET COUNT 291 TH/MM3 (150-450); WHITE BLOOD COUNT 10.2 TH/MM3 (4.0-11.0)
[2018-04-11 18:57] LABS: CHLORIDE 103 MEQ/L (98-107); SODIUM (NA) 137 MEQ/L (136-145)
[2018-04-11 19:00] LABS: CALCIUM 9.1 MG/DL (8.5-10.1)
[2018-04-11 19:01] LABS: ALBUMIN 3.6 GM/DL (3.4-5.0); BLOOD UREA NITROGEN 16 MG/DL (7-18); GLUCOSE,RANDOM 104 MG/DL (74-106); MAGNESIUM 2.4 MG/DL (1.5-2.5); PROTHROMBIN TIME - PATIENT 9.8 SEC (9.8-11.6)
[2018-04-11 19:04] LABS: ALT (GPT) 81 U/L (12-78); AST (GOT) 49 U/L (15-37); CREATININE 0.79 MG/DL (0.60-1.30); GLOMERULAR FILTRATION RATE 103 ML/MIN (>89)
[2018-04-11 19:05] LABS: TOTAL BILIRUBIN ADULT 0.5 MG/DL (0.2-1.0)
[2018-04-11 19:06] LABS: ALKALINE PHOSPHATASE 133 U/L (45-117)
[2018-04-11 19:09] LABS: TROPONIN I LESS THAN 0.02 NG/ML (0.02-0.05)
[2018-04-11] MEDS ORDERED: SODIUM CHLORIDE 0.9% FLUSH 10 ML FLUSH IV FLUSH PRN (19:30)
[2018-04-11] MEDS ORDERED: NALOXONE HCL 0.4 MG/ML AMP IV PUSH PRN (19:30)
--- NOTE | 2018-04-11 20:07 | PD ---
Physical Exam Narrative 52-year-old male presented here for left-sided chest pain. EKG shows no ST elevation or depression, troponin negative, labs are stable, patient was sent out to me in pending labs, patient will be admitted for chest pain rule out VT in a stable condition. Last 24 hours Impressions Chest X-Ray 04/11/181814 Signed Impressions: CONCLUSION: Linear atelectasis or scarring at the bases. No effusion or pneumothorax. No fo minh consolidation. Laboratory Tests Test 04/11/18 18:10 04/11/18 18:30 Urine Color YELLOW Urine Turbidity CLEAR Urine pH 5.5 Urine Specific [place] GREATER/EQUAL 1.030 Urine Protein NEG mg/dL Urine Glucose (UA) NEG mg/dL Urine Ketones NEG mg/dL Urine Occult Blood SMALL Urine Nitrite NEG Urine Bilirubin NEG Urine Urobilinogen 0.2 MG/DL Urine Leukocyte Esterase NEG Urine RBC 0-3 /hpf Urine WBC 0-2 /hpf Urine Bacteria RARE /hpf Microscopic Urinalysis Comment CULT NOT INDICATED White Blood Count 10.2 TH/MM3 Red Blood Count 5.50 MIL/MM3 Hemoglobin 16.1 GM/DL Hematocrit 48.8 % Mean Corpuscular Volume 88.6 FL Mean Corpuscular Hemoglobin 29.3 PG Mean Corpuscular Hemoglobin Concent 33.1 % Red Cell Distribution Width 12.0 % Platelet Count 291 TH/MM3 Mean Platelet Volume 7.1 FL Neutrophils (%) (Auto) 64.1 % Lymphocytes (%) (Auto) 26.8 % Monocytes (%) (Auto) 6.7 % Eosinophils (%) (Auto) 1.4 % Basophils (%) (Auto) 1.0 % Neutrophils # (Auto) 6.6 TH/MM3 Lymphocytes # (Auto) 2.7 TH/MM3 Monocytes # (Auto) 0.7 TH/MM3 Eosinophils # (Auto) 0.1 TH/MM3 Basophils # (Auto) 0.1 TH/MM3 CBC Comment DIFF FINAL Differential Comment Prothrombin Time 9.8 SEC Prothromb Time International Ratio 1.0 RATIO Activated Partial Thromboplast Time 26.4 SEC Blood Urea Nitrogen 16 MG/DL Creatinine 0.79 MG/DL Random Glucose 104 MG/DL Total Protein 8.0 GM/DL Albumin 3.6 GM/DL Calcium Level 9.1 MG/DL Magnesium Level 2.4 MG/DL Alkaline Phosphatase 133 U/L Aspartate Amino Transf (AST/SGOT) 49 U/L Alanine Aminotransferase (ALT/SGPT) 81 U/L Total Bilirubin 0.5 MG/DL Sodium Level 137 MEQ/L Potassium Level 4.4 MEQ/L Chloride Level 103 MEQ/L Carbon Dioxide Level 28.0 MEQ/L Anion Gap 6 MEQ/L Estimat Glomerular Filtration Rate 103 ML/MIN Total Creatine Kinase 294 U/L Creatine Kinase MB 2.0 NG/ML Troponin I LESS THAN 0.02 NG/ML Data Data Last Documented VS Vital Signs Date Time Temp Pulse Resp B/P (MAP) Pulse Ox O2 Delivery O2 Flow Rate FiO2 04/11/18 19:09 98 18 119/58 (78) 95 Room Air 04/11/18 17:16 98.6 Orders Orders Urinalysis - C+S If Indicated (04/11/18 17:25) Electrocardiogram (04/11/18 18:15) Ckmb (Isoenzyme) Profile (04/11/18 18:15) Complete Blood Count With Diff (04/11/18 18:15) Comprehensive Metabolic Panel (04/11/18 18:15) Magnesium (Mg) (04/11/18 18:15) Prothrombin Time / Inr (Pt) (04/11/18 18:15) Act Partial Throm Time (Ptt) (04/11/18 18:15) Troponin I (04/11/18 18:15) Ecg Monitoring (04/11/18 18:15) Iv Access Insert/Monitor (04/11/18 18:15) Oximetry (04/11/18 18:15) Oxygen Administration (04/11/18 18:15) Aspirin Chew (Aspirin Chew) (04/11/18 18:15) Sodium Chloride 0.9% Flush (Ns Flush) (04/11/18 18:15) Chest, Pa & Lat (04/11/18 18:15) Nitroglycerin Sl (Nitrostat Sl) (04/11/18 18:15) CKMB (04/11/18 18:30) CKMB% (04/11/18 18:30) Place In Observation (04/11/18 ) Vital Signs (Adult) Q4H (04/11/18 19:29) Activity Oob Ad Maeve (04/11/18 19:29) In Store Demonstrator / Telemetry .CONTINUOUS (04/11/18 19:29) Intake + Output [email or web address] (04/11/18 19:29) Diet Npo (04/12/18 Breakfast) Sodium Chloride 0.9% Flush (Ns Flush) (04/11/18 19:30) Sodium Chloride 0.9% Flush (Ns Flush) (04/11/18 21:00) Basic Metabolic Panel (Bmp) (04/12/18 06:00) Complete Blood Count With Diff (04/12/18 06:00) Creatine Kinase (Cpk) (04/12/18 00:00) Creatine Kinase (Cpk) (04/12/18 06:00) Troponin I (04/12/18 00:00) Troponin I (04/12/18 06:00) Case Management Consult (04/11/18 19:29) Scd Bilateral/Knee High [email or web address] (04/11/18 19:29) Naloxone Inj (Narcan Inj) (04/11/18 19:30) Electrocardiogram (04/12/18 00:00) Electrocardiogram (04/12/18 06:00) Admit Order (Ed Use Only) (04/11/18 19:42) Ct Abd/Pel W Iv Contrast(Rout) (04/11/18 ) Labs Laboratory Tests Test 04/11/18 18:10 04/11/18 18:30 Urine Color YELLOW Urine Turbidity CLEAR Urine pH 5.5 Urine Specific [place] GREATER/EQUAL 1.030 Urine Protein NEG mg/dL Urine Glucose (UA) NEG mg/dL Urine Ketones NEG mg/dL Urine Occult Blood SMALL Urine Nitrite NEG Urine Bilirubin NEG Urine Urobilinogen 0.2 MG/DL Urine Leukocyte Esterase NEG Urine RBC 0-3 /hpf Urine WBC 0-2 /hpf Urine Bacteria RARE /hpf Microscopic Urinalysis Comment CULT NOT INDICATED White Blood Count 10.2 TH/MM3 Red Blood Count 5.50 MIL/MM3 Hemoglobin 16.1 GM/DL Hematocrit 48.8 % Mean Corpuscular Volume 88.6 FL Mean Corpuscular Hemoglobin 29.3 PG Mean Corpuscular Hemoglobin Concent 33.1 % Red Cell Distribution Width 12.0 % Platelet Count 291 TH/MM3 Mean Platelet Volume 7.1 FL Neutrophils (%) (Auto) 64.1 % Lymphocytes (%) (Auto) 26.8 % Monocytes (%) (Auto) 6.7 % Eosinophils (%) (Auto) 1.4 % Basophils (%) (Auto) 1.0 % Neutrophils # (Auto) 6.6 TH/MM3 Lymphocytes # (Auto) 2.7 TH/MM3 Monocytes # (Auto) 0.7 TH/MM3 Eosinophils # (Auto) 0.1 TH/MM3 Basophils # (Auto) 0.1 TH/MM3 CBC Comment DIFF FINAL Differential Comment Prothrombin Time 9.8 SEC Prothromb Time International Ratio 1.0 RATIO Activated Partial Thromboplast Time 26.4 SEC Blood Urea Nitrogen 16 MG/DL Creatinine 0.79 MG/DL Random Glucose 104 MG/DL Total Protein 8.0 GM/DL Albumin 3.6 GM/DL Calcium Level 9.1 MG/DL Magnesium Level 2.4 MG/DL Alkaline Phosphatase 133 U/L Aspartate Amino Transf (AST/SGOT) 49 U/L Alanine Aminotransferase (ALT/SGPT) 81 U/L Total Bilirubin 0.5 MG/DL Sodium Level 137 MEQ/L Potassium Level 4.4 MEQ/L Chloride Level 103 MEQ/L Carbon Dioxide Level 28.0 MEQ/L Anion Gap 6 MEQ/L Estimat Glomerular Filtration Rate 103 ML/MIN Total Creatine Kinase 294 U/L Creatine Kinase MB 2.0 NG/ML Troponin I LESS THAN 0.02 NG/ML MDM Supervised Visit with KAYCEE: No Diagnosis Primary Impression: Chest pain Qualified Codes: R07.9 - Chest pain, unspecified Admitting Information Admitting Physician Requests: it Aneudy Cristina MD Apr 11, 2018 20:07
[2018-04-11] MEDS: SODIUM CHLORIDE 0.9% FLUSH 10 ML FLUSH IV FLUSH SCH (21:23)
[2018-04-12 01:17] LABS: TROPONIN I LESS THAN 0.02 NG/ML (0.02-0.05)
[2018-04-12 04:00] VITALS: BP 143/89; PULSE 106; RESP 20; TEMP 98.1; O2SAT 94
[2018-04-12 06:36] LABS: BASOPHIL # 0.1 TH/MM3 (0-0.2); BASOPHIL % 0.9 % (0.0-2.0); EOSINOPHIL # 0.2 TH/MM3 (0-0.4); EOSINOPHIL % 1.6 % (0.0-4.0); HEMATOCRIT 47.3 % (39.0-51.0); LYMPH % 27.5 % (9.0-44.0); LYMPHOCYTE # 3.1 TH/MM3 (1.0-4.8); MEAN CELL VOLUME 88.5 FL (80.0-100.0); MEAN CORPUSCULAR HGB CONC 33.9 % (32.0-36.0); MEAN PLATELET VOLUME 7.1 FL (7.0-11.0); MONO % 6.9 % (0.0-8.0); MONOCYTE # 0.8 TH/MM3 (0-0.9); NEUT % 63.1 % (16.0-70.0); PLATELET COUNT 275 TH/MM3 (150-450); RED BLOOD COUNT 5.34 MIL/MM3 (4.50-5.90); RED CELL DISTRIBUTION WIDTH 11.9 % (11.6-17.2); WHITE BLOOD COUNT 11.2 TH/MM3 (4.0-11.0)
[2018-04-12 06:46] LABS: CHLORIDE 104 MEQ/L (98-107); SODIUM (NA) 138 MEQ/L (136-145)
[2018-04-12 06:48] LABS: CALCIUM 8.5 MG/DL (8.5-10.1)
[2018-04-12 06:49] LABS: BICARBONATE 26.6 MEQ/L (21.0-32.0); BLOOD UREA NITROGEN 14 MG/DL (7-18); GLUCOSE,RANDOM 116 MG/DL (74-106)
[2018-04-12 06:52] LABS: CREATININE 0.72 MG/DL (0.60-1.30); GLOMERULAR FILTRATION RATE 114 ML/MIN (>89)
[2018-04-12 06:57] LABS: TROPONIN I LESS THAN 0.02 NG/ML (0.02-0.05)
[2018-04-12 07:43] VITALS: BP 146/82; PULSE 104; RESP 20; TEMP 98; O2SAT 92
[2018-04-12] MEDS: SODIUM CHLORIDE 0.9% FLUSH 10 ML FLUSH IV FLUSH SCH (08:29)
--- NOTE | 2018-04-12 09:02 | HHI.HP ---
[facility] No Primary Care Physician Admission Diagnosis CHEST PAIN R/O [place]. Diagnoses: (1) Chest pain Diagnosis: Principal Chief Complaint: Chest pain Travel History International Travel<30 Days: No Contact w/Intl Traveler <30 Da: No Traveled to Known Affected Are: No History of Present Illness 52-year-old male with known history of hypertension, chronic obstructive pulmonary disease who presented the hospital for evaluation of chest pain. Patient indicates that he has had chronic chest discomfort which is persistent that is usually a heaviness sensation in the middle part of his chest. But he states that whenever he exerts himself the discomfort gets worse to a 7/10 on a pain scale and has occasional association with shortness of breath. Denies any nausea, vomiting, diaphoresis, lightheadedness, dizziness. Patient states that the other day when he was laying down he had the pain in the left side of his chest that started in his chest and radiated into his back. States that it made him short of breath at that time. It did resolve on its own without any treatment. The patient had another episode yesterday and he came to emergency department for evaluation. Patient was given nitro without any significant relief of his discomfort. Because of the patient's symptoms it was recommended by the ER physician that patient be observed in the chest pain center for further evaluation and management. Patient states that he has been taking his medications regularly. His last cardiac workup was in 2007 which he underwent an exercise stress test which was negative. Review of Systems Cardiovascular: COMPLAINS OF: Chest pain Except as stated in HPI: all other systems reviewed are Neg Past Family Social History Past Medical History Hypertension Chronic obstructive pulmonary disease Past Surgical History Tonsillectomy Reported Medications Reported Meds & Active Scripts Active Reported [Blue B/P Pill] 1 Tab PO BID Allergies: Coded Allergies: Sulfa (Sulfonamide Antibiotics) (Unverified Allergy, Severe, SOB, 04/11/18) ciprofloxacin (Verified Allergy, Unknown, 04/11/18) Family History Family history reviewed and significant for heart disease with mother having open heart surgery. Father with emphysema Social History Patient smokes 2 pack of cigarettes a day since he was 12 years old. States that he quit using alcohol 2 weeks ago. Does continue to smoke marijuana Physical Exam Vital Signs Vital Signs Date Time Temp Pulse Resp B/P (MAP) Pulse Ox O2 Delivery O2 Flow Rate FiO2 04/12/18 07:43 98.0 104 20 146/82 (103) 92 04/12/18 04:00 98.1 106 20 143/89 (107) 94 04/11/18 22:15 112 04/11/18 22:00 97.7 112 20 158/102 (120) 96 04/11/18 21:50 04/11/18 21:35 107 18 128/83 (98) 94 Room Air 04/11/18 20:34 104 18 166/97 (120) 94 Room Air 04/11/18 19:09 98 18 119/58 (78) 95 Room Air 04/11/18 18:45 93 Room Air 04/11/18 18:45 93 Room Air 04/11/18 17:16 98.6 109 18 126/82 (97) 94 Physical Exam GENERAL: Well-developed, well-nourished, in no acute distress. alert and orientated HEENT: Head is normocephalic without any lesions or masses noted. Facial features are symmetric. Eyes: Pupils equal round reactive to light. Extraocular muscles are intact. Conjunctivae were clear. Oropharyngeal: Pharynx without any erythema edema. Tongue is midline without deviation. Buccal mucosa is moist without any masses or lesions NECK: Supple without any masses. Trachea midline no deviation. No JVD, no bruits are appreciated CARDIAC: Regular rhythm, regular rate. S1/S2 are heard. No murmurs gallops or rubs. LUNGS: Clear to auscultation bilaterally. No wheeze, rhonchi or rales. No use of accessory muscles on inspiration or expiration. ABDOMEN: Soft, nontender. Nondistended. Bowel sounds heard in all 4 quadrants. No organomegaly or masses. Negative rebound, negative guarding EXTREMITIES: No edema, pulses are equal bilaterally. No cyanosis or clubbing NEUROLOGY: Mood and affect appear appropriate. Cranial nerves II through XII grossly intact. Muscle strength 5/5 in upper and lower extremities bilaterally. Deep tendon reflexes are 2+ in upper and lower extremities bilaterally. Laboratory Laboratory Tests Test 04/11/18 18:10 04/11/18 18:30 04/12/18 00:45 04/12/18 05:45 Urine Color YELLOW Urine Turbidity CLEAR Urine pH 5.5 Urine Specific [place] GREATER/EQUAL 1.030 Urine Protein NEG Urine Glucose (UA) NEG Urine Ketones NEG Urine Occult Blood SMALL Urine Nitrite NEG Urine Bilirubin NEG Urine Urobilinogen 0.2 Urine Leukocyte Esterase NEG Urine RBC 0-3 Urine WBC 0-2 Urine Bacteria RARE Microscopic Urinalysis Comment CULT NOT INDICATED White Blood Count 10.2 11.2 Red Blood Count 5.50 5.34 Hemoglobin 16.1 16.0 Hematocrit 48.8 47.3 Mean Corpuscular Volume 88.6 88.5 Mean Corpuscular Hemoglobin 29.3 30.0 Mean Corpuscular Hemoglobin Concent 33.1 33.9 Red Cell Distribution Width 12.0 11.9 Platelet Count 291 275 Mean Platelet Volume 7.1 7.1 Neutrophils (%) (Auto) 64.1 63.1 Lymphocytes (%) (Auto) 26.8 27.5 Monocytes (%) (Auto) 6.7 6.9 Eosinophils (%) (Auto) 1.4 1.6 Basophils (%) (Auto) 1.0 0.9 Neutrophils # (Auto) 6.6 7.0 Lymphocytes # (Auto) 2.7 3.1 Monocytes # (Auto) 0.7 0.8 Eosinophils # (Auto) 0.1 0.2 Basophils # (Auto) 0.1 0.1 CBC Comment DIFF FINAL DIFF FINAL Differential Comment Prothrombin Time 9.8 Prothromb Time International Ratio 1.0 Activated Partial Thromboplast Time 26.4 Blood Urea Nitrogen 16 14 Creatinine 0.79 0.72 Random Glucose 104 116 Total Protein 8.0 Albumin 3.6 Calcium Level 9.1 8.5 Magnesium Level 2.4 Alkaline Phosphatase 133 Aspartate Amino Transf (AST/SGOT) 49 Alanine Aminotransferase (ALT/SGPT) 81 Total Bilirubin 0.5 Sodium Level 137 138 Potassium Level 4.4 4.0 Chloride Level 103 104 Carbon Dioxide Level 28.0 26.6 Anion Gap 6 7 Estimat Glomerular Filtration Rate 103 114 Total Creatine Kinase 294 284 255 Creatine Kinase MB 2.0 Troponin I LESS THAN 0.02 LESS THAN 0.02 LESS THAN 0.02 Result Diagram: 04/12/18 0545 04/12/18 0545 Imaging Last Impressions Chest X-Ray 04/11/18 1815 Signed Impressions: CONCLUSION: Linear atelectasis or scarring at the bases. No effusion or pneumothorax. No fo minh consolidation. Caprini VTE Risk Assessment Caprini VTE Risk Assessment: Mod/High Risk (score >= 2) Caprini Risk Assessment Model Point Value = 1 Point Value = 2 Point Value = 3 Point Value = 5 Age 41-60 Minor surgery BMI > 25 kg/m2 Swollen legs Varicose veins or History of unexplained or recurrent spontaneous Oral contraceptives or hormone replacement Sepsis (< 1 month) Serious lung disease, including pneumonia (< 1 month) Abnormal pulmonary function Acute myocardial infarction Congestive heart failure (< 1 month) History of inflammatory bowel disease Medical patient at bed rest Age 61-74 Arthroscopic surgery Major open surgery (> 45 min) Laparoscopic surgery (> 45 min) Malignancy Confined to bed (> 72 hours) Immobilizing plaster cast Central venous access Age >= 75 History of VTE Family history of VTE Factor V Leiden Prothrombin 12507I Lupus anticoagulant Anticardiolipin antibodies Elevated serum homocysteine Heparin-induced thrombocytopenia Other congenital or acquired thrombophilia Stroke (< 1 month) Elective arthroplasty Hip, pelvis, or leg fracture Acute spinal cord injury (< 1 month) Prophylaxis Regimen Total Risk Factor Score Risk Level Prophylaxis Regimen 0-1 Low Early ambulation 2 Moderate Order ONE of the following: *Sequential Compression Device (SCD) *Heparin 5000 units SQ BID 3-4 Higher Order ONE of the following medications: *Heparin 5000 units SQ TID *Enoxaparin/Lovenox 40 mg SQ daily (WT < 150 kg, CrCl > 30 mL/min) *Enoxaparin/Lovenox 30 mg SQ daily (WT < 150 kg, CrCl > 10-29 mL/min) *Enoxaparin/Lovenox 30 mg SQ BID (WT < 150 kg, CrCl > 30 mL/min) AND/OR *Sequential Compression Device (SCD) 5 or more Highest Order ONE of the following medications: *Heparin 5000 units SQ TID (Preferred with Epidurals) *Enoxaparin/Lovenox 40 mg SQ daily (WT < 150 kg, CrCl > 30 mL/min) *Enoxaparin/Lovenox 30 mg SQ daily (WT < 150 kg, CrCl > 10-29 mL/min) *Enoxaparin/Lovenox 30 mg SQ BID (WT < 150 kg, CrCl > 30 mL/min) AND *Sequential Compression Device (SCD) Assessment and Plan Assessment and Plan Atypical chest pain -Patient does have increased risk factors include age, body habitus, hypertension, family history of heart disease -Patient has been ruled out for acute coronary event with serial cardiac enzymes are negative -Serial EKGs were performed and reviewed by myself which indicate sinus rhythm without any changes -Myocardial perfusion study was performed and indicated no signs of ischemia, low risk -Patient continued on aspirin, nitroglycerin -Cardiac telemetry was reviewed without any acute abnormality Hypertension -Blood pressure stable DVT prevention -Sequential compression devices Discharge disposition Discharge home in stable condition Activity: Ad radha. Diet: Healthy heart diet Medication per medication reconciliation Follow-up with primary medical doctor in 1 week The exam, history, and the medical decision-making described in the above note were completed with the assistance of the mid-level provider. I reviewed and agree with the findings presented. I attest that I had a [id number] encounter with the patient on the same day, and personally performed and documented my assessment and findings in the medical record. Problem Qualifiers (1) Chest pain: Qualified Codes: R07.9 - Chest pain, unspecified Vinayak Howell Apr 12, 2018 09:01 Phoebe Howe MD Apr 12, 2018 18:44
[2018-04-12] MEDS ORDERED: IOHEXOL 350 MG/ML 10 ML VIAL (for RAD DIAG) IVCONTRAST ONE (10:25)
--- NOTE | 2018-04-12 10:27 | RADRPT ---
EXAM DATE: 04/12/2018 10:19 AM EDT AGE/SEX: 52 years / Male INDICATIONS: Left sided pain. CLINICAL DATA: This is the patient's initial encounter. Patient reports that signs and symptoms have been present for 3 months and indicates a pain score of 7/10. MEDICAL/SURGICAL HISTORY: Hypertension. Chronic obstructive pulmonary disease. . Lumbar surger y. ORAL CONTRAST: No oral contrast ingested. RADIATION DOSE: 21.89 CTDI (mGy) COMPARISON: [facility] [place], CT ABDOMEN & PELVIS W CONTRAST, 09/04/2017. . TECHNIQUE: Multiple contiguous axial images were obtained through the abdomen and pelvis following b olus infusion of 95 ml Omnipaque 350 (iohexol) nonionic water-soluble contrast as a single exam dos e. No oral contrast ingested. Using automated exposure control and adjustment of the mA and/or kV ac cording to patient size, the radiation dose was kept as low as reasonably achievable to obtain optima l diagnostic quality images. FINDINGS: Lower Lungs: The visualized lower lungs are clear. Liver: The liver has a homogeneous density without space-occupying lesion. There is no dilation of th e biliary tree. Spleen: Homogeneous density without enlargement. Pancreas: Unremarkable without mass or calcification. Kidneys: 6 x 4 mm calcification in the left renal collecting system at the UPJ, unchanged since 2016. Adrenal Glands: Unremarkable. Aorta: The aorta and proximal iliac vessels are grossly unremarkable without aneurysmal dilation. Bowel/Mesentery: The bowel loops are grossly unremarkable. The cecum and sigmoid colon have a normal configuration. Abdominal Wall: Intact. Retroperitoneum: No evidence of adenopathy in the retrocrural, para-aortic, or deep pelvic regions. Bladder: Contours are smooth. Reproductive Organs: No abnormal masses or calcifications seen. Inguinal: The inguinal region is unremarkable without evidence of adenopathy. Bony Structures: Unremarkable. CONCLUSION: 1. 4 x 6 mm calcification in the left UPJ unchanged since August 2017. Otherwise unremarkable study Electronically signed by: Macario Bains MD 04/12/2018 10:25 AM EDT
[2018-04-12] MEDS ORDERED: REGADENOSON INJ 0.4 MG/5 ML SYR IV ONE (10:38)
[2018-04-12 11:47] VITALS: BP 142/76; PULSE 94; RESP 20; TEMP 97.6; O2SAT 92
--- NOTE | 2018-04-12 11:53 | RADRPT ---
EXAM DATE: 04/12/2018 11:35 AM EDT AGE/SEX: 52 years / Male INDICATIONS:Angina. . Mid chest pain with shortness of breath for one day. CLINICAL DATA: This is the patient's initial encounter. Patient reports that signs and symptoms have been present for 1 day and indicates a pain score of 7/10. MEDICAL/SURGICAL HISTORY: Chronic obstructive pulmonary disease. Hypertension. Tonsillectomy. COMPARISON: No prior [place] exams available for comparison. No external comparison. DOSE: 10.75 mCi Tc 99m Myoview at rest 35.0 mCi [id number] at stress 0.4 mg Lexiscan STRESS SYMPTOMS: Shortness of breath. EJECTION FRACTION: 66% % TECHNIQUE: The patient underwent pharmacologic stress with infusion of prescribed dose. Continuous ECG tracing was monitored during stress. Gated SPECT imaging was performed after stress and conventi onal SPECT imaging was performed at rest. The examination was performed on a SPECT/CT scanner, both attenuation and non-corrected datasets were reviewed. FINDINGS: Distribution: The maximum perfused segment at stress is in the anterior wall. Perfusion Study: The pattern of perfusion at stress is within normal limits. Gated Study: There are intact wall motion and wall thickening without hypokinetic or dyskinetic segm ents. The ejection fraction is calculated at 66%%. RISK CATEGORY: Low (<1% Annual Motality Rate) CONCLUSION: 1. Left ventricle perfusion is within normal limits. No fixed or reversible perfusion defect is iden tified. 2. Normal left ventricle wall motion and ejection fraction. Electronically signed by: Chandler Gonzalez MD 04/12/2018 11:52 AM EDT
--- NOTE | 2018-04-12 12:09 | HHI.DCPOC ---
Discharge Care Plan Diagnosis: (1) Chest pain Goals to Promote Your Health * To prevent worsening of your condition and complications * To maintain your health at the optimal level Directions to Meet Your Goals Take your medications as prescribed Follow your dietary instruction Follow activity as directed Keep your appointments as scheduled Take your immunizations and boosters as scheduled If your symptoms worsen call your PCP, if no PCP go to Urgent Care Center or Emergency Room Smoking is Dangerous to Your Health. Avoid second hand smoke Call the 24-hour hour crisis hotline for domestic abuse at Vinayak Howell Apr 12, 2018 12:09
--- NOTE | 2018-04-12 12:55 | TR ---
Date Performed: 04/12/2018 Time Performed: 10:51:29 DOCTOR: Viviana Hendrickson DRUG LIST: CLINICAL HISTORY: ANGINA REASON FOR TEST: Angina REASON FOR ENDING: OBSERVATION: CONCLUSION: Lexiscan stress test was performed under standard four minute protocol. Radionuclid e was injected one minute prior to ending the test. No electrocardiographic abormalities were present to suggest ischemia. Nuclear imaging and interpretation are pending. COMMENTS: no ischemia
--- NOTE | 2018-04-12 17:05 | EKG ---
Date Performed: 04/11/2018 Time Performed: 18:32:20 PTAGE: 52 years EKG: SINUS TACHYCARDIA ABNORMAL RHYTHM ECG WARNING: DATA QUALITY MAY AFFECT INTERPRETATION Since the PREVIOUS TRACING , no significant change noted PREVIOUS TRACIN09/04/2017 20.16 DOCTOR: Staci Fagan Interpretating Date/Time 04/12/2018 17:02:45
--- NOTE | 2018-04-12 17:05 | EKG ---
Date Performed: 04/12/2018 Time Performed: 00:58:54 PTAGE: 52 years EKG: SINUS TACHYCARDIA MODERATE INTRAVENTRICULAR CONDUCTION DELAY ABNORMAL RHYTHM ECG Since the PREVIOUS TRACING , no significant change noted PREVIOUS TRACIN04/11/2018 18.32 DOCTOR: Staci Fagan Interpretating Date/Time 04/12/2018 17:02:54
--- NOTE | 2018-04-12 17:06 | EKG ---
Date Performed: 04/12/2018 Time Performed: 06:28:04 PTAGE: 52 years EKG: SINUS TACHYCARDIA ABNORMAL RHYTHM ECG Since the PREVIOUS TRACING , no significant change noted PREVIOUS TRACIN04/12/2018 00.58 DOCTOR: Staci Fagan Interpretating Date/Time 04/12/2018 17:03:06
== END 2018-04-12 14:27 | disposition home or self-care (01) ==
LOC: PHED 17:13 → PHEDA 19:44 → PH3B 21:57
PROVIDERS: ADMIT Family Medicine; ATTEND Family Medicine
DX: R07.89 Other chest pain (principal); R10.12 Left upper quadrant pain; J44.9 Chronic obstructive pulmonary disease, unspecified; R11.0 Nausea; F17.210 Nicotine dependence, cigarettes, uncomplicated; E66.01 Morbid (severe) obesity due to excess calories; I10 Essential (primary) hypertension; Z82.49 Family history of ischemic heart disease and other diseases of the circulatory system; F12.90 Cannabis use, unspecified, uncomplicated; J98.11 Atelectasis; N28.89 Other specified disorders of kidney and ureter; R94.31 Abnormal electrocardiogram [ECG] [EKG]; R00.0 Tachycardia, unspecified
CPT/HCPCS: 71046; 74177; 78452; 80048; 80053; 81001; 82550; 82552; 83735; 84484; 85025; 85610; 85730; 93005; 93017; 99285; A9502; G0378; J2785; Q9967